=== PATIENT | female | born 1945 | race Caucasian/White ===

== ENCOUNTER 2018-05-23 14:23 | Observation (INO) | payer MEDICARE ==
--- NOTE | 2018-05-23 14:42 | ED ---
Abdominal Pain/Female - HPI Summary HPI Summary: This patient is a 72 year old F BIBA to [facility] from [facility] with a chief complaint of RUQ pain that began this morning. Pt states she felt like he has layers of different kinds of stuff going on in her and that it was creepy. The patient rates the pain 2/10 in severity. 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 Patient denies n/v and rash. Seen at [facility] last week for non STEMI and cath was normal. Pt states she has felt depressed due to the recent illness. Pt transfer from [facility] - c/o RUQ pain. Pt had "non ST elevated ID" last week - taken to [facility], heart cath done, no stents placed. Found gall bladder "thickening with stones." Pt c/o nausea as well as R shoulder pain. 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 Allergies/Adverse Reactions: Allergies Allergy/AdvReac Type Severity Reaction Status Date / Time MS Pollen Extract Allergy Sneezing Verified 05/23/18 14:34 [Pollen Extract] Home Medications: Home Medications Aspirin EC TAB* [Ecotrin EC Low Dose 81 MG*] 81 mg PO DAILY 05/23/18 [History Confirmed 05/23/18] Atorvastatin* [Lipitor*] 10 mg PO DAILY 05/23/18 [History Confirmed 05/23/18] Lisinopril [Lisinopril 2.5 MG-] 2.5 mg PO DAILY 05/23/18 [History Confirmed ] Metoprolol Succinate XL TAB* [Toprol XL TAB*] 25 mg PO DAILY 05/23/18 [History Confirmed 05/23/18] traMADol TAB* [Ultram*] 50 mg PO DAILY 05/23/18 [History Confirmed 05/23/18] PMH/Surg Hx/FS Hx/Imm Hx Endocrine/Hematology History: Denies: Hx Diabetes Cardiovascular History: Reports: Hx Myocardial Infarction - non STEMI Denies: Hx Congestive Heart Failure, Hx Hypertension, Hx Pacemaker/ICD GI History: Comment Only: Other GI Disorders - VOMITING History: Denies: Hx Renal Disease Musculoskeletal History: Denies: Hx Tendonitis Sensory History: Denies: Hx Hearing Aid Neurological History: Denies: Hx Transient Ischemic Attacks (TIA) Psychiatric History: Denies: Hx Panic Disorder - Cancer History Hx Chemotherapy: No Hx Radiation Therapy: No - Surgical History Surgery Procedure, Year, and Place: APPENDIX 2004; BUNIONS BILATERAL FEET/TOE REMOVED ;. HX OF SKIN CA 2017 Infectious Disease History: No Infectious Disease History: Denies: Traveled Outside the [place] in Last 30 Days - Family History Known Family History: Negative: Diabetes, Respiratory Disease, Seizure Disorder - Social History Alcohol Use: None Substance Use Type: Reports: None Smoking Status (MU): Former Smoker Review of Systems Positive: Other - weight loss of 4 lbs Positive: Abdominal Pain - ruq . Negative: Vomiting, Nausea Positive: Other - frozen right shoulder Neurological: Other - light headedness All Other Systems Reviewed And Are Negative: Yes Physical Exam - Summary Physical Exam Summary: Appearance: Well appearing, no pain distress Skin: warm, dry, reflects adequate perfusion, no rashes. There is a bruise in the left forearm from a recent cath Head/face: normal Eyes: EOMI, ARNOL ENT: normal Neck: supple, non-tender Respiratory: CTA, breath sounds present Cardiovascular: RRR, pulses symmetrical Abdomen: non-tender, soft Bowel Sounds: present Musculoskeletal: normal, strength/ROM intact, full ROM in RUE Neuro: normal, sensory motor intact, A&Ox3 Triage Information Reviewed: Yes Vital Signs On Initial Exam: Initial Vitals Temp Pulse Resp BP Pulse Ox 97.8 F 70 18 125/73 95 05/23/18 14:27 05/23/18 14:27 05/23/18 14:27 05/23/18 14:27 05/23/18 14:27 Vital Signs Reviewed: Yes Diagnostics - Vital Signs Vital Signs Temp Pulse Resp BP Pulse Ox 05/23/18 14:27 97.8 F 70 18 125/73 95 - Laboratory Result Diagrams: 05/23/18 16:56 05/23/18 16:56 Lab Statement: Any lab studies that have been ordered have been reviewed, and results considered in the medical decision making process. - CT CT Cspine CT Interpretation Completed By: Radiologist - Multilevel degenerative disc disease without evidence of fracture. Dr. Perez has reviewed this report. - EKG 1549 Cardiac Rate: NL EKG Rhythm: Sinus Rhythm - NSR at 61 BPM EKG Interpretation: flipped waves in the septal and lateral leads. nml axis. No ST elevations Abdominal Pain Fem Course/Dx - Course Course Of Treatment: I reviewed records from [place] which showed. Mild thicken of gall bladder wall 4.6 mm no fluid and a few small stones. Cholesterolosis. LFTs are normal, lipase pending WBCs is 12,. Patient has no pain here. She is scheduled for HIDA scan of the gallbladder. CT of the neck indicates multilevel degenerative disease. Symptoms in the arm may be from radiculopathy. She will be admitted for for further and reevaluated by surgery. - Diagnoses Provider Diagnoses: RUQ pain, Cervical radiculopathy - Provider Notifications Discussed Care Of Patient With: Perla Roberts Time Discussed With Above Provider: 14:42 Instructed by Provider To: Admit As Inpatient Discharge - Sign-Out/Discharge Documenting (check all that apply): Patient Departure - admitted - Discharge Plan Condition: Fair Disposition: ADMITTED TO [facility] - Billing Disposition and Condition Condition: FAIR Disposition: Admitted to [facility] - Attestation Statements Document Initiated by Scribe: Yes Documenting Scribe: Teo Hull Provider For Whom Abhishek is Documenting (Include Credential): Trino Perez MD Scribe Attestation: Teo Ho , scribed for Trino Perez MD on 05/23/18 at 1758. Scribe Documentation Reviewed: Yes Provider Attestation: The documentation as recorded by the Teo zuleta accurately reflects the service I personally performed and the decisions made by me, Trino Perez MD
--- OUTSIDE RECORDS SUMMARY | 2018-05-23 15:19 | XMS REPORT ---
:1945 External Reference #:[id number] Author Organization [facility] Address [address] [place] [address] Phone [phone] Care Team Providers Name Role Phone Heather Jensen Care Team Information Health Sciences Department Chair Unavailable Heather Jensen Primary Care Physician Unavailable Payers Type Date Identification Numbers Payment Provider Subscriber Medicare Primary Effective: Policy Number: Medicare [place] Sharonda Cool 2008 [id number] PayID: [id number] [address] [place] [address] Medigap Part B Effective: Policy Number: [facility] Sharonda Cool 2008 [id number] Care Options PayID: [id number] [address] [place] [address] Problems Date Description Provider Status Onset: 03/20/2013 Depressive disorder Heather Jensen M.D. Active Onset: 03/20/2013 Irritable bowel syndrome Heather Jensen M.D. Active Onset: 01/18/2018 Vitamin D deficiency Heather Jensen M.D. Active Onset: 01/18/2018 Mixed hyperlipidemia Heather Jensen M.D. Active Onset: 01/18/2018 Obstructed diaphragmatic hernia Heather Jensen M.D. Active Onset: 01/18/2018 Dyspnea Heather Jensen M.D. Active Family History Date Family Member(s) Problem(s) Comments General no fam hx lung, colon ca, DM. Mat aunt - Breast CA. No NE/Stroke Father due to COPD () - history of depression age 73. smoker. ? bi-polar Mother due to Alzheimer's () - 82. showed signs Disease of memory issues ~ age 65. Number of Children 2 First Daughter Rosette. Second Daughter Braxton Aceves, healthy. First Sister depression./ bipolar- manages herself. Second Sister mental health issues. Social History Type Date Description Comments Education Highest level of education completed is 2 years of college. Art. 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 Hobbies Antiques Cigarette Use Former Cigarette Smoker 1 10 years. Quit 1987. 1/2 Packs Daily ETOH Use Has consumed alcohol in the not since 1983. Used past to drink heavily. Smoking Patient is a former smoker Recreational Drug Use Never Used Drugs Exercise Type/Frequency garden, [employer] picking. Current Seat Belt/Car Seat Always uses a seat belt Allergies, Adverse Reactions, Alerts Date Description Reaction Status Severity Comments 06/28/2011 NKDA active 03/23/2010 Pollen active Medications Medication Date Status Form Strength Qnty SIG Indications Ordering Provider Ibuprofen 05/22/ Active Tablets 600mg 90tab 1 tab by Heather Alejo s mouth Mikey, every 8 M.D. hours as needed pain. take with food Aspirin Ec 05/22/ Active Tablets DR 81mg 100ta 1 by mouth I25.10 Heather Alejo bs every day Nicci Jensen Nitrostat 05/22/ Active Tablets Sub 0.4mg 30tab 1 tab sub I25.10 Heather Conte 2017 s lingual Mikey, every 5 M.D. minutes x 3. Tramadol HCL 05/22/ Active Tablets 50mg 20tab take 1 M25.511 Heather Conte 2017 s pill by Mikey, mouth 4 M.D. times daily Ventolin HFA 04/17/ Active Aerosol 108(90Bas 18uni 2 puffs 4 Heather Conte 2017 e) ts times Mikey, mcg/Act daily. M.D. Proair HFA 01/18/ Active Aerosol 108(90Bas 8.5un inhale two R06.02 Heather Conte 2017 e) its puffs by Mikey, mcg/Act mouth M.D. every 4 -6hours as needed Meclizine HCL 01/18/ Active Tablets 12.5mg 50tab 1-2 by H81.13 Heather Tate s mouth four Mikey, times a M.D. day as needed dizziness Iron 00/ Active Tablets 1 tab po Unknown 0000 qd Metoprolol / Active Tablets ER 25mg 1 by mouth Unknown Succinate ER 0000 24HR every day Lisinopril / Active Tablets 2.5mg 1 by mouth Unknown 0000 every day Atorvastatin 00/ Active Tablets 10mg 1 by mouth Unknown Calcium 0000 every day Metoprolol 02/01/ Hx Tablets 25mg 45tab take 1/2 F43.22 Heather Conte Tartrate 2018 - s tablet by Mikey, 05/22/ mouth once M.D. 2018 a day Levofloxacin 01/26/ Hx Tablets 750mg 1 tab a Unknown 2017 - x 7 02/05/ days 2017 Note Physical 01/26/ Hx Evaluate Heather Conte Therapy 2016 - and Treat. Mikey, 03/22/ Vertigo M.D. 2016 fax to : [phone] Probiotic 01/18/ Hx Capsules 90cap 1 by mouth Heather Conte 2017 - s every day Mikey, 01/17/ M.D. 2017 No Active 05/09/ Hx Unknown Medications 2015 - 2016 Physical 03/07/ Hx evaluate Heather Conte Therapy 2015 - and treat Mikey, 05/08/ dizzyness M.D. 2016 maili to patient's home No Active 02/06/ Hx Unknown Medications 2015 - 2015 Diflucan 01/23/ Hx Tablets 150mg 2tabs one tablet J02.9 Cordelia 2016 - today and ANGIE Davenport 02/06/ repeat in 2016 a week No Active 01/26/ Hx Unknown Medications 2014 - 2015 Vitamin D3 05/03/ Hx Capsules [id number] 12cap 1 po Heather Conte 2014 - s weekly x Mikey, . M.D. 2014 Probiotic 03/26/ Hx Capsules 1 po qd Heather Conte 2013 - Mikey, 01/26/ M.D. 2015 Zofran 03/20/ Hx Tablets 4mg 60tab 1-2 po tid Heather Conte 2014 - s for Mikey, 03/26/ vomiting M.D. 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 No Active 01/19/ Hx Unknown Medications 2013 - 2013 Zoloft 10/09/ Hx Concentrate 20mg/ml 60ml 1 ml po Heather Conte 2013 - qd x 2 Mikey, 01/19/ 09/11 MClifton 2013 ml po qd x 2 weeks 1/4 ml po qd x 2 weeks 1/4 ml po qod x 2 weeks 1/4 ml po q3 days x2 weeks Zoloft 11/26/ Hx Tablets 25mg 90tab 1 po qd 311 Heather LJude 2012 - s Mikey, 01/19/ Nicci 2013 Celexa 01/03/ Hx Tablets 10mg 90tab 1 po qd 300.09 Rosalia 2011 - s Jasmin 11/26/ 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 Celexa 05/24/2011 - Hx Tablets 10mg 30tabs 1 po qd 311 Elizabeth Villegas 01/04/2012 Nicci Campbell Zoloft 03/23/2011 - Hx Tablets 25mg 30tabs 1 po qd 311 Ina 05/24/2011 Sachin Frank Wellbutrin XL 03/06/2011 - Hx Tablets ER 150mg 30tabs 1 po qd Kimberly 03/06/2011 24HR casey Madden M.D. Bupropion HCL 03/06/2011 - Hx Tablets 75mg 60tabs 1 PO bid Kimberly 03/23/2011 casey Madden M.D. Aspirin 06/14/2009 - Hx Chewtabs 81mg 1 po qd Family 03/06/2011 [facility] Fish Oil 06/14/2009 - Hx Capsules 1000mg 60caps 1 po bid Kimberly 01/04/2012 casey Madden M.D. Calcium-Vitamin 06/14/2009 - Hx Tablets 500-125 60tabs 1 with Kimberly D 03/06/2011 breakfast and casey Madden, 1 with dinner M.DJude Meclizine HCL 05/14/2009 - Hx Tablets 12.5mg 20tabs take 1-2 bid 386.11 Ina 03/06/2011 prn for Monika, dizziness Afnp-C Physical 05/06/2009 - Hx evaluate and Ina Therapy 03/06/2011 treat Monika, cervicalgia Afnp-C and vertigo Xanax 03/03/2009 - Hx Tablets 0.5mg 3tabs one to two Porter A. 03/09/2009 tabs po 1-2 Nicci Tapia hours prior to procedure Meclizine HCL 02/02/2009 - Hx Tablets 12.5mg 30tabs one to two 386.10 Porter A. 03/09/2009 tab po every Nicci Tapia 12 hours Zyrtec Allergy 02/02/2009 - Hx Tablets 10mg 30tabs one tab po 477.9 Porter A. 03/09/2009 daily Nicci Tapia Ativan 01/28/2007 - Hx Tablets 0.5mg 90tabs 1-2 q8 hours Kimberly 02/02/2009 prn anxiety casey Madden M.D. Paxil 05/18/2005 - Hx Tablets 10mg 30tabs 1 po qd Ina 07/02/2006 Monika, Afnp-C Prednisone 04/17/2001 - Hx Tabs 20mg 38tabs 2/D X 3DWesley 04/27/2001 Then 1/D X 3D Nicci Andrade Prozac 04/17/2001 - Hx 20mg 30units 1 PO qd Wesley Lance 07/19/2001 Nicci Andrade Prempro 05/24/2000 - Hx 0.625/2 30units 1 PO qd Wesley Lance 05/18/2005 .5 Nicci Andrade Metrogel 02/23/2000 - Hx 15gm Apply bid Wesley S. 05/18/2005 Nicci Andrade Zoloft 08/12/1999 - Hx 50 30units 1 Q.D Wesley S. 05/24/2000 Nicci Andrade Flexeril 08/24/1998 - Hx 10mg 30units 1 PO tid prn Wesley S. 06/14/1999 Neck Pain Nicci Andrade Diprolene AF 08/17/1998 - Hx 15gm Apply bid To Wesley S. 06/14/1999 Rash Nicci Andrade Relafen 06/17/1998 - Hx 500mg 30units 2 PO qd With Wesley SJude 08/24/1998 Moira Meal Nicci Andrade Bactrim DS 06/10/1998 - Hx 10units 1 PO bid Ina 06/15/1998 Sachin Frank Vermox 06/07/1998 - Hx 100mg 1units 1 Tab Stat Ina 06/08/1998 Sachin Frank Naproxen 05/19/1998 - Hx 375mg 30units 1 PO tid prn Wesley SJude 06/07/1998 Tab Nicci Andrade Metrogel 05/19/1998 - Hx Gel 70gm as Dir Wesley Welsh. Vaginal 05/26/1998 Nicci Andrade Vitamin B 6 - Hx Capsules 100mg Unknown 03/20/2013 Cipro - Hx Tablets 500mg 1 po bid Unknown 03/20/2014 Metronidazole - Hx Tablets 500mg 1 po tid Unknown 03/26/2014 Proair HFA - Hx Aerosol 108(90B 2 puffs every Unknown 02/01/2018 ase) 6 hours as mcg/Act needed Immunizations CPT Code Status Date Vaccine Lot # [id number] Given 01/18/2018 Pneumococcal Conjugate Vacc-13 [id number] Vital Signs Date Vital Result Comment 05/22/2018 BP Systolic 116 mmHg BP Diastolic 62 mmHg Heart Rate 60 /min Body Temperature 98.1 F Respiratory Rate 16 /min Height 61 inches 5'1" Weight 129.12 lb BMI (Body Mass Index) 24.4 kg/m2 02/01/2018 BP Systolic 100 mmHg BP Diastolic 60 mmHg Heart Rate 80 /min Body Temperature 98.6 F Respiratory Rate 16 /min Height 61 inches 5'1" Weight 133.00 lb BMI (Body Mass Index) 25.1 kg/m2 01/18/2018 BP Systolic 98 mmHg BP Diastolic 62 mmHg Heart Rate 76 /min Body Temperature 98.6 F Respiratory Rate 16 /min Height 61 inches 5'1" 04/12/2017 BP Systolic 102 mmHg BP Diastolic 62 mmHg Heart Rate 84 /min Body Temperature 97.7 F Height 61 inches 5'1" Weight 133.38 lb BMI (Body Mass Index) 25.2 kg/m2 03/22/2017 BP Systolic 120 mmHg BP Diastolic 78 mmHg Heart Rate 76 /min Body Temperature 98.2 F Respiratory Rate 18 /min Height 61 inches 5'1" Weight 133.00 lb BMI (Body Mass Index) 25.1 kg/m2 01/18/2017 BP Systolic 100 mmHg BP Diastolic 70 mmHg Heart Rate 68 /min Body Temperature 98.1 F Respiratory Rate 18 /min Height 61 inches 5'1" Weight 133.00 lb BMI (Body Mass Index) 25.1 kg/m2 05/09/2016 BP Systolic 114 mmHg BP Diastolic 70 mmHg Heart Rate 102 /min Body Temperature 98.1 F Height 61 inches 5'1" Weight 133.00 lb BMI (Body Mass Index) 25.1 kg/m2 01/24/2016 BP Systolic 110 mmHg BP Diastolic 60 mmHg Heart Rate 72 /min Body Temperature 98.4 F Respiratory Rate 16 /min Height 61 inches 5'1" Weight 132.00 lb BMI (Body Mass Index) 24.9 kg/m2 01/11/2016 BP Systolic 102 mmHg BP Diastolic 70 mmHg Heart Rate 82 /min Body Temperature 97.8 F Respiratory Rate 15 /min Height 61 inches 5'1" Weight 132.00 lb BMI (Body Mass Index) 24.9 kg/m2 04/15/2015 BP Systolic 120 mmHg BP Diastolic 70 mmHg Heart Rate 76 /min Body Temperature 98.0 F Respiratory Rate 16 /min Height 61 inches 5'1" Weight 133.00 lb BMI (Body Mass Index) 25.1 kg/m2 01/26/2015 BP Systolic 100 mmHg BP Diastolic 70 mmHg Heart Rate 68 /min Body Temperature 98.1 F Height 61 inches 5'1" Weight 134.00 lb BMI (Body Mass Index) 25.3 kg/m2 03/26/2014 BP Systolic 134 mmHg BP Diastolic 70 mmHg Heart Rate 58 /min Body Temperature 97.4 F Respiratory Rate 16 /min Height 61 inches 5'1" Weight 127.00 lb BMI (Body Mass Index) 24.0 kg/m2 03/16/2014 BP Systolic 140 mmHg BP Diastolic 72 mmHg Heart Rate 72 /min Body Temperature 98.9 F Respiratory Rate 16 /min Height 61.5 inches 5'1.50" Weight 128.25 lb BMI (Body Mass Index) 23.8 kg/m2 02/27/2014 BP Systolic 102 mmHg BP Diastolic 62 mmHg Heart Rate 88 /min Body Temperature 98.6 F Height 61.5 inches 5'1.50" Weight 128.00 lb BMI (Body Mass Index) 23.8 kg/m2 01/19/2014 BP Systolic 120 mmHg BP Diastolic 74 mmHg Heart Rate 76 /min Body Temperature 98.4 F Respiratory Rate 16 /min Height 61.5 inches 5'1.50" Weight 136.00 lb BMI (Body Mass Index) 25.3 kg/m2 05/23/2013 BP Systolic 122 mmHg BP Diastolic 70 mmHg Heart Rate 72 /min Body Temperature 98.6 F Respiratory Rate 16 /min Height 61.5 inches 5'1.50" Weight 133.12 lb BMI (Body Mass Index) 24.7 kg/m2 03/20/2013 BP Systolic 122 mmHg BP Diastolic 70 mmHg Heart Rate 72 /min Body Temperature 97.4 F Respiratory Rate 18 /min Height 61.5 inches 5'1.50" Weight 133.12 lb BMI (Body Mass Index) 24.7 kg/m2 01/04/2012 BP Systolic 90 mmHg BP Diastolic 60 mmHg Heart Rate 68 /min Body Temperature 98.3 F Height 61.5 inches 5'1.50" Weight 135.00 lb BMI (Body Mass Index) 25.1 kg/m2 06/28/2011 BP Systolic 114 mmHg BP Diastolic 72 mmHg Heart Rate 78 /min Body Temperature 98.5 F Height 61.5 inches 5'1.50" Weight 131.00 lb BMI (Body Mass Index) 24.3 kg/m2 05/24/2011 BP Systolic 110 mmHg BP Diastolic 70 mmHg Heart Rate 72 /min Respiratory Rate 14 /min Height 61.5 inches 5'1.50" Weight 131.00 lb BMI (Body Mass Index) 24.3 kg/m2 04/13/2011 BP Systolic 102 mmHg BP Diastolic 64 mmHg Heart Rate 64 /min Body Temperature 97.9 F Height 61.5 inches 5'1.50" Weight 131.00 lb BMI (Body Mass Index) 24.3 kg/m2 04/06/2011 BP Systolic 110 mmHg BP Diastolic 78 mmHg Heart Rate 78 /min Height 61.5 inches 5'1.50" Weight 132.00 lb BMI (Body Mass Index) 24.5 kg/m2 03/23/2011 BP Systolic 100 mmHg BP Diastolic 80 mmHg Heart Rate 60 /min Body Temperature 98.3 F Height 61.5 inches 5'1.50" Weight 134.00 lb BMI (Body Mass Index) 24.9 kg/m2 03/06/2011 BP Systolic 118 mmHg BP Diastolic 72 mmHg Heart Rate 78 /min Body Temperature 97.3 F Height 61.5 inches 5'1.50" Weight 135.00 lb BMI (Body Mass Index) 25.1 kg/m2 03/23/2010 BP Systolic 114 mmHg BP Diastolic 64 mmHg Heart Rate 72 /min Body Temperature 98.3 F Height 61.5 inches 5'1.50" Weight 134.00 lb BMI (Body Mass Index) 24.9 kg/m2 06/14/2009 BP Systolic 126 mmHg BP Diastolic 88 mmHg Heart Rate 72 /min Body Temperature 98.4 F Height 61.5 inches 5'1.50" Weight 127.00 lb BMI (Body Mass Index) 23.6 kg/m2 05/14/2009 BP Systolic 120 mmHg BP Diastolic 74 mmHg Heart Rate 72 /min Height 61.5 inches 5'1.50" Weight 127.00 lb BMI (Body Mass Index) 23.6 kg/m2 05/06/2009 BP Systolic 118 mmHg BP Diastolic 78 mmHg Heart Rate 68 /min Body Temperature 98.1 F Weight 127.00 lb 03/09/2009 BP Systolic 110 mmHg BP Diastolic 76 mmHg Heart Rate 56 /min Body Temperature 96.7 F Weight 130.00 lb 03/04/2009 BP Systolic 128 mmHg BP Diastolic 72 mmHg Heart Rate 68 /min Weight 130.00 lb 02/02/2009 BP Systolic 128 mmHg BP Diastolic 80 mmHg Heart Rate 72 /min Body Temperature 98.0 F Weight 130.00 lb 01/28/2007 BP Systolic 120 mmHg BP Diastolic 70 mmHg Heart Rate 68 /min Height 61.5 inches 5'1.50"Measured Weight 131.00 lb BMI (Body Mass Index) 24.3 kg/m2 07/02/2006 BP Systolic 116 mmHg BP Diastolic 70 mmHg Heart Rate 66 /min Height 61.5 inches 5'1.50"Measured Weight 134.00 lb BMI (Body Mass Index) 24.9 kg/m2 05/18/2005 BP Systolic 118 mmHg BP Diastolic 78 mmHg Heart Rate 62 /min Respiratory Rate 11 /min Height 62.5 inches 5'2.50" Weight 124.00 lb BMI (Body Mass Index) 22.3 kg/m2 02/17/2004 BP Systolic 100 mmHg BP Diastolic 68 mmHg Heart Rate 88 /min Body Temperature 99.5 F Height 62.5 inches 5'2.50" Weight 122.00 lb BMI (Body Mass Index) 22.0 kg/m2 06/05/2001 BP Systolic 100 mmHg BP Diastolic 60 mmHg Heart Rate 64 /min Height 62.5 inches 5'2.50" Weight 124.00 lb BMI (Body Mass Index) 22.7 kg/m2 04/17/2001 BP Systolic 90 mmHg BP Diastolic 60 mmHg Heart Rate 80 /min Height 62 inches 5'2" Weight 124.00 lb BMI (Body Mass Index) 22.7 kg/m2 06/15/2000 Height 62 inches 5'2" 05/24/2000 BP Systolic 110 mmHg BP Diastolic 70 mmHg Heart Rate 62 /min Body Temperature 97.4 F Height 62 inches 5'2" Weight 128.00 lb BMI (Body Mass Index) 23.4 kg/m2 02/23/2000 BP Systolic 94 mmHg LA SM Cuff BP Diastolic 64 mmHg LA SM Cuff Heart Rate 68 /min Height 62.50 inches 5'2.50" Weight 127.00 lb BMI (Body Mass Index) 23.2 kg/m2 06/14/1999 BP Systolic 126 mmHg BP Diastolic 68 mmHg Height 62.50 inches 5'2.50" Weight 132.00 lb 08/24/1998 BP Systolic 120 mmHg BP Diastolic 70 mmHg Body Temperature 97.3 F 08/17/1998 Body Temperature 98.6 F Weight 128.00 lb 06/07/1998 BP Systolic 130 mmHg BP Diastolic 88 mmHg Weight 127.00 lb 05/19/1998 Body Temperature 97.9 F 05/14/1998 BP Systolic 110 mmHg BP Diastolic 74 mmHg Weight 130.00 lb Results Test Date Test Result H/L Range Note Laboratory test finding 02/13/2017 TSH 5.09 mIU/L 0.50-6.00 Free T4 1.15 ng/dL 0.75-1.54 Free T3 2.42 pg/mL 2.00-4.90 Vitamin B-12 836 pg/mL 230-1050 Folate Level 15.68 ng/mL 3.00-16.00 Vitamin D25 31 30-100 Lipid Profile 02/13/2017 Cholesterol 222 mg/dL High 120-200 Triglycerides 164 mg/dL 30-200 HDL Cholesterol 50 mg/dL 30-85 LDL (Calculated) 139 CALC High 0-129 VLDL Cholesterol 33 mg/dL 0-50 HDL Risk Factor 4.4 CALC 0.0-4.4 Laboratory test finding 02/13/2017 Ferritin 7 ng/mL Low 15-200 1 Complete Blood Count 02/13/2017 WBC 5.5 x10^3/UL 3.6-9.6 RBC 4.55 x10^6/UL 3.90-5.70 HGB 13.4 g/dL 12.1-17.2 HCT 39 % 36-50 MCV 87.0 fL 82.2-97.4 MCH 29.4 pg 27.6-33.3 MCHC 33.9 g/dL 33.0-35.5 RDW 14.9 % High 11.6-13.7 PLT 328 x10^3/UL 150-400 MPV 6.9 fL Low 7.4-10.4 Gran # 3.4 x10^3/UL 1.5-7.2 Lymph# 1.7 x10^3/UL 0.7-4.9 Obion# 0.4 x10^3/UL 0.1-0.9 Gran % 59.5 % 42.2-75.2 Lymph % 32.0 % 20.5-51.1 Obion% 8.5 % 1.7-9.3 Comprehensive Metabolic Prof 02/13/2017 Sodium 137 mEq/L 134-149 Potassium 4.0 mEq/L 3.6-5.5 Chloride 100 mEq/L 94-112 Carbon Dioxide 26 mEq/L 21-32 Glucose 100 mg/dL 70-105 BUN 19 mg/dL 6-26 Creatinine 0.8 mg/dL 0.6-1.4 BUN/Creat Ratio 23.8 CALC 8.0-36.0 Calcium 9.1 mg/dL 8.6-10.2 Total Protein 6.9 g/dL 6.4-8.3 Albumin 4.4 g/dL 3.8-5.5 Globulin 2.5 g/dL 2.0-4.8 A/G Ratio 1.8 CALC 0.6-2.3 Alk. Phosphatase 61 U/L 30-110 Alt (SGPT) 7 U/L 7-35 Ast (Sgot) 15 U/L 5-34 Total Bilirubin 1.4 mg/dL High 0.2-1.3 2 GFR Non- >60 ml/min/1.73m^ >=60 GFR >60 ml/min/1.73m^ >=60 Urinalysis Profile 03/21/2016 Urine Color Straw Urine Appearance Clear Urine Specific [place] 1.004 Low 1.010-1.030 Urine pH 5.0 5-9 Urine Urobilinogen Negative Negative Urine Ketones Negative Negative Urine Protein Negative Negative Urine Leukocytes Negative Negative Urine Blood Negative Negative Urine Nitrite Negative Negative Urine Bilirubin Negative Negative Urine Glucose Negative Negative CBC Auto Diff 03/21/2016 White Blood Count 6.5 10^3/uL 3.5-10.8 Red Blood Count 4.51 10^6/uL 4.0-5.4 Hemoglobin 13.0 g/dL 12.0-16.0 Hematocrit 39 % 35-47 Mean Corpuscular Volume 87 fL 80-97 Mean Corpuscular Hemoglobin 29 pg 27-31 Mean Corpuscular HGB Conc 33 g/dL 31-36 Red Cell Distribution Width 14 % 10.5-15 Platelet Count 305 10^3/uL 150-450 Mean Platelet Volume 8 um3 7.4-10.4 Abs Neutrophils 4.5 10^3/uL 1.5-7.7 Abs Lymphocytes 1.3 10^3/uL 1.0-4.8 Abs Monocytes 0.4 10^3/uL 0-0.8 Abs Eosinophils 0.2 10^3/uL 0-0.6 Abs Basophils 0.1 10^3/uL 0-0.2 Abs Nucleated RBC 0.01 10^3/uL Granulocyte % 69.7 % 38-83 Lymphocyte % 20.6 % Low 25-47 Monocyte % 5.9 % 1-9 Eosinophil % 2.4 % 0-6 Basophil % 1.4 % 0-2 Nucleated Red Blood Cells % 0.1 Comp Metabolic Panel 03/21/2016 Sodium 137 mmol/L 133-145 Potassium 3.7 mmol/L 3.5-5.0 Chloride 104 mmol/L 101-111 Co2 Carbon Dioxide 25 mmol/L 22-32 Anion Gap 8 mmol/L 2-11 Glucose 101 mg/dL High 70-100 Blood Urea Nitrogen 16 mg/dL 6-24 Creatinine 0.80 mg/dL 0.51-0.95 BUN/Creatinine Ratio 20.0 8-20 Calcium 9.3 mg/dL 8.6-10.3 Total Protein 7.2 g/dL 6.4-8.9 Albumin 4.2 g/dL 3.2-5.2 Globulin 3.0 g/dL 2-4 Albumin/Globulin Ratio 1.4 1-3 Total Bilirubin 1.10 mg/dL High 0.2-1.0 Alkaline Phosphatase 61 U/L 34-104 Alt 7 U/L 7-52 Ast 18 U/L 13-39 Egfr Non- 70.5 >60 Egfr 90.7 >60 3 Laboratory test finding 03/21/2016 Magnesium 2.3 mg/dL 1.9-2.7 Troponin I 0.00 ng/mL <0.03 4 TSH (Thyroid Stim Horm) 2.44 ?IU/mL 0.34-5.60 Ua - Non Micro (a) 01/24/2016 Appearance yellow Color clear Glucose, Urine ([facility]/CMC/CTX) neg Bilirubin neg Ketones neg SP Grav 1.020 Blood neg PH 5.5 Protein neg Urobil 0.2 Nitrite neg Leukocytes ([place] neg Comprehensive Metabolic Prof 01/11/2016 Sodium 138 mEq/L 134-149 Potassium 4.4 mEq/L 3.6-5.5 Chloride 100 mEq/L 94-112 Carbon Dioxide 29 mEq/L 21-32 Glucose 94 mg/dL 70-105 BUN 13 mg/dL 6-26 Creatinine 0.8 mg/dL 0.6-1.4 BUN/Creat Ratio 16.3 CALC 8.0-36.0 Calcium 9.8 mg/dL 8.6-10.2 Total Protein 6.9 g/dL 6.4-8.3 Albumin 4.3 g/dL 3.8-5.5 Globulin 2.6 g/dL 2.0-4.8 A/G Ratio 1.7 CALC 0.6-2.3 Alk. Phosphatase 68 U/L 30-110 Alt (SGPT) 9 U/L 7-35 Ast (Sgot) 22 U/L 5-34 Total Bilirubin 1.1 mg/dL 0.2-1.3 GFR Non- >60 ml/min/1.73m^ >=60 GFR >60 ml/min/1.73m^ >=60 Laboratory test finding 01/11/2016 TSH 2.48 mIU/L 0.50-6.00 Complete Blood Count 01/11/2016 WBC 3.4 x10^3/UL Low 3.6-9.6 5 RBC 4.57 x10^6/UL 3.90-5.70 HGB 13.8 g/dL 12.1-17.2 HCT 41 % 36-50 MCV 89.0 fL 82.2-97.4 MCH 30.3 pg 27.6-33.3 MCHC 33.9 g/dL 33.0-35.5 RDW 14.2 % High 11.6-13.7 PLT 237 x10^3/UL 150-400 MPV 6.7 fL Low 7.4-10.4 Gran # 2.0 x10^3/UL 1.5-7.2 Lymph# 1.2 x10^3/UL 0.7-4.9 Obion# 0.2 x10^3/UL 0.1-0.9 Gran % 56.4 % 42.2-75.2 Lymph % 36.4 % 20.5-51.1 Obion% 7.2 % 1.7-9.3 Laboratory test finding 04/15/2015 Urine Culture ([facility]/CMC) NEGATIVE Ua - Micro ([facility]ma) 04/15/2015 Appearance CLEAR Color YELLOW Glucose, Urine ([facility]ma/CMC/CTX) NEG Bilirubin NEG Ketones NEG SP Grav 1.015 Blood TRACE-INTACT PH 5.0 Protein NEG Urobil 0.2 Nitrite NEG Leukocytes ([facility]ma/[facility]) NEG Hyaline - /Lpf Granular - /Lpf WBC (Fma,[facility]) - RBC 0-1 Mucus - /Lpf Epith RARE /Lpf Bacteria - /Hpf Amorphous - /Lpf Crystals, Fluid ([facility]ma/CMC/CTX) - Z#Comments - Laboratory test finding 01/26/2015 TSH 1.74 mIU/L 0.50-6.00 Free T4 1.04 ng/dL 0.75-1.54 Complete Blood Count 01/26/2015 WBC 5.5 x10^3/UL 3.6-9.6 RBC 4.51 x10^6/UL 3.90-5.70 HGB 13.5 g/dL 12.1-17.2 HCT 40 % 36-50 MCV 89.0 fL 82.2-97.4 MCH 30.0 pg 27.6-33.3 MCHC 33.8 g/dL 33.0-35.5 RDW 13.9 % High 11.6-13.7 PLT 298 x10^3/UL 150-400 MPV 6.6 fL Low 7.4-10.4 Gran # 3.5 x10^3/UL 1.5-7.2 Lymph# 1.6 x10^3/UL 0.7-4.9 Obion# 0.4 x10^3/UL 0.1-0.9 Gran % 60.7 % 42.2-75.2 Lymph % 30.4 % 20.5-51.1 Obion% 8.9 % 1.7-9.3 Comprehensive Metabolic Prof 01/26/2015 Sodium 137 mEq/L 134-149 Potassium 3.6 mEq/L 3.6-5.5 Chloride 100 mEq/L 94-112 Carbon Dioxide 24 mEq/L 21-32 Glucose 92 mg/dL 70-105 BUN 15 mg/dL 6-26 Creatinine 0.8 mg/dL 0.6-1.4 BUN/Creat Ratio 18.8 CALC 8.0-36.0 Calcium 9.8 mg/dL 8.6-10.2 Total Protein 7.6 g/dL 6.4-8.3 Albumin 4.2 g/dL 3.8-5.5 Globulin 3.4 g/dL 2.0-4.8 A/G Ratio 1.2 CALC 0.6-2.3 Alk. Phosphatase 60 U/L 30-110 Alt (SGPT) 11 U/L 7-35 Ast (Sgot) 20 U/L 5-34 Total Bilirubin 1.2 mg/dL 0.2-1.3 Laboratory test finding 01/26/2015 Vitamin D25 46 30-100 Ua - Non Micro ([facility]) 03/26/2014 Appearance CLEAR Color YELLOW Glucose NEG Bilirubin NEG Ketones NEG SP Grav 1.020 Blood NEG PH 6.5 Protein NEG Urobil 0.2 Nitrite NEG Leukocytes ([facility] NEG Complete Blood Count 03/26/2014 WBC 5.6 x10^3/UL 3.6-9.6 RBC 4.37 x10^6/UL 3.90-5.70 HGB 12.5 g/dL 12.1-17.2 HCT 37 % 36-50 MCV 85.0 fL 82.2-97.4 MCH 28.7 pg 27.6-33.3 MCHC 33.8 g/dL 33.0-35.5 RDW 13.2 % 11.6-13.7 PLT 390 x10^3/UL 150-400 MPV 7.3 fL Low 7.4-10.4 Gran # 3.7 x10^3/UL 1.5-7.2 Lymph# 1.4 x10^3/UL 0.7-4.9 Obion# 0.5 x10^3/UL 0.1-0.9 Gran % 64.2 % 42.2-75.2 Lymph % 26.2 % 20.5-51.1 [place]% 9.6 % High 1.7-9.3 Basic Metabolic Profile 03/26/2014 Sodium 140 mEq/L 134-149 Potassium 4.3 mEq/L 3.6-5.5 Chloride 106 mEq/L 94-112 Carbon Dioxide 24 mEq/L 21-32 Glucose 96 mg/dL 70-105 BUN 11 mg/dL 6-26 Creatinine 0.9 mg/dL 0.6-1.4 BUN/Creat Ratio 12.2 CALC 8.0-36.0 Calcium 9.6 mg/dL 8.6-10.2 Laboratory test finding 03/26/2014 Vitamin D25 5 Low 30-100 6 TSH 2.10 mIU/L 0.50-6.00 Laboratory test finding 03/26/2014 Hemoglobin A1c [place] [place] 5.3 % 4.1- 5.7 Lyme Western Blot Ser 03/26/2014 IgG P93 Ab. Absent IgG P66 Ab. Absent IgG P58 Ab. Absent IgG P45 Ab. Absent IgG P41 Ab. Absent IgG P39 Ab. Absent IgG P30 Ab. Absent IgG P28 Ab. Absent IgG P23 Ab. Absent IgG P18 Ab. Absent Lyme IgG WB Interp. Negative 7 IgM P41 Ab. Absent IgM P39 Ab. Absent IgM P23 Ab. Absent Lyme IgM WB Interp. Negative 8 Stool Culture 03/14/2014 Stool Culture (SEE NOTE) 9 Laboratory test finding 03/14/2014 Fecal Lactoferrin (Stool WBC) (SEE NOTE) 10 C. difficile Amplified Dna (SEE NOTE) 11 O P: Giardia/Cryptospor Screen (SEE NOTE) 12 Laboratory test finding 03/14/2014 Lactic Acid 0.8 mmol/L 0.5-2.2 Urinalysis Profile 03/13/2014 Urine Color Yellow Urine Appearance Clear Urine Specific [place] 1.011 1.010-1.030 Urine pH 5.0 5-9 Urine Urobilinogen Negative Negative Urine Ketones Negative Negative Urine Protein Negative Negative Urine Leukocytes Negative Negative Urine Blood Negative Negative * * Negative 13 Urine Nitrite Negative Negative Urine Bilirubin Negative Negative Urine Glucose Negative Negative CBC Auto Diff 03/13/2014 White Blood Count 17.1 10^3/uL High 4.8-10.8 Red Blood Count 4.50 10^6/uL 4.0-5.4 Hemoglobin 12.6 g/dL 12.0-16.0 Hematocrit 37 % 35-47 Mean Corpuscular Volume 82 fL 80-97 Mean Corpuscular Hemoglobin 28 pg 27-31 Mean Corpuscular HGB Conc 34 g/dL 31-36 Red Cell Distribution Width 15 % 10.5-15 Platelet Count 385 10^3/uL 150-450 Mean Platelet Volume 7 um3 Low 7.4-10.4 Abs Neutrophils 15.5 10^3/uL High 1.5-7.7 Abs Lymphocytes 1.0 10^3/uL 1.0-4.8 Abs Monocytes 0.5 10^3/uL 0-0.8 Abs Eosinophils 0.1 10^3/uL 0-0.6 Abs Basophils 0.1 10^3/uL 0-0.2 Abs Nucleated RBC 0.02 10^3/uL Granulocyte % 90.5 % High 38-83 Lymphocyte % 5.8 % Low 25-47 Monocyte % 2.9 % 1-9 Eosinophil % 0.4 % 0-6 Basophil % 0.4 % 0-2 Nucleated Red Blood Cells % 0.1 Inr/Protime 03/13/2014 Inr 0.88 0.85-1.06 Laboratory test finding 03/13/2014 Activated Partial 26.5 seconds 24.0- 36.1 Thrombo Time Comp Metabolic Panel 03/13/2014 Sodium 135 mmol/L 133-145 Potassium 4.1 mmol/L 3.7-5.6 Chloride 102 mmol/L 101-111 Co2 Carbon Dioxide 25 mmol/L 22-32 Anion Gap 8 mmol/L 2-11 Glucose 120 mg/dL High 70-100 Blood Urea Nitrogen 14 mg/dL 6-24 Creatinine 0.83 mg/dL 0.51-0.95 BUN/Creatinine Ratio 16.9 8-20 Calcium 10.1 mg/dL 8.6-10.3 Total Protein 7.4 g/dL 6.4-8.9 Albumin 4.5 g/dL 3.2-5.2 Globulin 2.9 g/dL 2-4 Albumin/Globulin Ratio 1.6 1-3 Total Bilirubin 0.90 mg/dL 0.2-1.0 Alkaline Phosphatase 60 U/L 34-104 Alt 8 U/L 7-52 Ast 19 U/L 13-39 Egfr Non- 68.0 >60 Egfr 87.4 >60 14 Laboratory test finding 03/13/2014 Amylase 51 U/L 29-103 Lipase 27 U/L 11.0-82.0 Creatine Kinase 47 U/L 10-223 Troponin I 0.00 ng/mL <0.03 15 C Reactive Protein 1.07 mg/L < 5.00 16 Lactic Acid 2.6 mmol/L High 0.5-2.2 17 Laboratory test finding 02/28/2014 Stool Culture (SEE NOTE) 18 O P: Giardia/Cryptospor Screen (SEE NOTE) 19 Ova Parasite Concen Full (SEE NOTE) 20 Laboratory test finding 01/19/2014 Glucose Whole Blood 95 70-105 Laboratory test finding 03/20/2013 Cytology RUN DATE: <SEE NOTE> CBC Electronic (Fma) 03/20/2013 WBC 6.3 3.6-9.6 RBC 4.48 3.90-5.70 Hemoglobin (Fma/CMC/CTX) 13.0 g/dL 12.1 - 17.2 Hematocrit (Fma/CMC/CTX) 39.3 % 36.1 - 50.3 Platelets 302 10^3/ul 150-400 Lymph% 25.0 20.5-51.1 Mixed% 5.5 Neutrophils % 69.5 Mean Corpuscular Vol 88 82.2-97.4 Mean Corpuscular Hemoglobin 29.0 27.6-33.3 Mean Corpuscular Hemo Concen 33.1 32.0-36.0 RDW 12.9 11.6-13.7 Mean Platelet Volume 6.7 6.5-11.0 Ua - Micro (Fma) 03/20/2013 Appearance YELLOW Color CLEAR Glucose NEG Bilirubin NEG Ketones NEG SP Grav 1.010 Blood TRACE-INTACT PH 5.0 Protein NEG Urobil 0.2 Nitrite NEG Leukocytes (Fma/CMC/Centrex) TRACE Hyaline - /Lpf Granular - /Lpf WBC (Fma,Centrex) 1-3 RBC 0-2 Mucus - /Lpf Epith RARE /Lpf Bacteria TRACE /Hpf Amorphous - /Lpf Crystals, Fluid (Fma/CMC/CTX) - Z#Comments - Lipid Profile 03/20/2013 Cholesterol 234 mg/dL High 120-200 HDL 52 mg/dL 30-85 Triglycerides 136 mg/dL 30-200 HDL Risk Factor 4.5 CALC High 0.0-4.4 LDL (Calculated) 155 CALC High 0-129 VLDL (Calculated) 27 mg/dL 0-50 Comprehensive Metabolic Prof 03/20/2013 Albumin 4.7 g/dL 3.8-5.5 Alk. Phos. 65 U/L 30-110 Alt (SGPT) 6 U/L Low 7-35 22 Ast (Sgot) 18 U/L 5-34 BUN 18 mg/dL 6-26 Calcium 9.6 mg/dL 8.6-10.2 Chloride 100 mEq/L 94-112 Creatinine 0.9 mg/dL 0.6-1.4 Carbon Dioxide 27 mEq/L 21-32 Glucose 93 mg/dL 70-105 Sodium 142 mEq/L 134-149 Total Bilirubin 1.1 mg/dL 0.2-1.3 Total Protein 6.9 g/dL 6.3-8.1 Potassium 4.0 mEq/L 3.6-5.5 Globulin 2.2 g/dL 2.0-4.8 A/G Ratio 2.2 Calc 0.6-2.3 BUN/Creat Ratio 20.2 Calc 8.0-36.0 Laboratory test finding 03/20/2013 TSH 1.88 mIU/L 0.50-6.00 Ua - Micro (Fma) 06/28/2011 Appearance cloudy Color yellow Glucose neg Bilirubin neg Ketones neg SP Grav <1.005 Blood small PH 5.0 Protein neg Urobil 0.2 Nitrite neg Leukocytes (Fma/CMC/Centrex) small Hyaline - /Lpf Granular - /Lpf WBC (Fma,Centrex) 20-30some clump RBC 1-2 Mucus - /Lpf Epith occass /Lpf Bacteria trace /Hpf Amorphous - /Lpf Crystals, Fluid (Fma/CMC/CTX) - Z#Comments - Wound Culture 06/28/2011 .Gram Stain Additional NO EPI, NO WBC, <SEE NOTE> 23 Wound Culture Citrobacter freu <SEE NOTE> 24 Ua - Micro (Fma) 05/24/2011 Appearance clear Color light yellow Glucose neg Bilirubin neg Ketones neg SP Grav <1.005 Blood neg PH 5.5 Protein neg Urobil 0.2 Nitrite neg Leukocytes (Fma/CMC/Centrex) trace Hyaline - /Lpf Granular - /Lpf WBC (Fma,Centrex) 1-2 RBC - Mucus - /Lpf Epith rare /Lpf Bacteria rare /Hpf Amorphous - /Lpf Crystals, Fluid (Fma/CMC/CTX) - Z#Comments - Wound Culture 05/24/2011 .Gram Stain Additional FEW EPI, RARE WB <SEE NOTE> 25 Wound Culture Escherichia coli 26 GC/Chlamydia Probe Or 05/24/2011 Chlamydia Amplified Probe NEGATIVE Urine(Centrex) GC Amplified Probe NEGATIVE Laboratory test finding 03/06/2011 Thin Prep W/HPV(Lsil/SAM/Asc) SEE NOTE 27 Ua - Non Micro (Fma) 03/06/2011 Appearance CLEAR Color YELLOW Glucose NEG Bilirubin NEG Ketones NEG SP Grav <=1.005 Blood NEG PH 5.0 Protein NEG Urobil 0.2 Nitrite NEG Leukocytes (Fma/CMC/Centrex) NEG Laboratory test finding 06/05/2009 Urine Culture BETA STREP GROUP 28 Sensitivi <SEE NOTE> Comp Stat 06/04/2009 Sodium 140 mmol/L 135-145 Potassium 3.5 mmol/L 3.5-5.0 Chloride 104 mmol/L 101-111 Co2 (Carbon Dioxide) 29.0 mmol/L 22-32 Anion Gap 7.0 mmol/L 2-11 29 Glucose 95 mg/dL 70-100 30 BUN 17 mg/dL 6-24 Creatinine 0.70 mg/dL 0.50-1.40 One Over Creatinine 1.40 BUN/Creatinine Ratio 24.3 High 8-20 Calcium 9.5 mg/dL 8.1-9.9 31 Total Protein 7.4 GM/DL 6.2-8.1 Albumin 4.1 GM/DL 3.2-5.2 Globulin 3.3 GM/DL 2-4 Albumin/Globulin Ratio 1.2 1-3 Bilirubin Total 1.6 mg/dL High 0.4-1.5 32 Alkaline Phosphatase 72 U/L 30-110 Alt (SGPT) 12 U/L Low 14-54 Ast (Sgot) 24 U/L 12-42 eGFR Non- 89.3 > 60 eGFR 108.0 > 60 33 Protime Stat 06/04/2009 Inr 0.97 0.86-1.13 34 Protime 11.9 SEC 10.7-13.6 35 PTT (Aptt) Stat 06/04/2009 PTT (Aptt) 31.2 25.15-38.53 36 CBC With Electronic Diff Stat 06/04/2009 White Blood Count 6.7 CUMM 4.8- 10.8 Red Cell Count 4.92 CUMM 4.2-5.4 Hemoglobin 14.7 g/dL 12.0-16.0 Hematocrit 44 % 35-47 Mean Corpuscular Volume 89 um3 79-97 Mean Corpuscular Hemoglob 30 pg 27-31 Mean Corpuscular HGB Cone 34 g/dL 32-36 Redcell Distribution WDTH 14 % 10.5-15 Platelet Count 319 CUMM 150-450 Mean Platelet Volume 7.4 um3 7.4-10.4 Gran % 63.2 % 38-83 Lymph % 23.9 % Low 25-47 Mononuclear % 7.8 % 1-9 Eosinophil % 4.0 % 0-6 Basophil % 1.1 % 0-2 Abs Lymphs 1.6 1.0-4.8 Abs Mononuclear 0.5 0-0.8 Absolute Neutrophil Count 4.2 1.5-7.7 Abs Eosinophils 0.3 0-0.6 Abs Basophils 0.1 0-0.2 Complete Blood Count 05/19/2009 WBC 5.9 x10^3/uL 3.6-9.6 37 Gran# 4.0 x10^3/uL 1.5-7.2 37 Gran% 68.6 % 42.2-75.2 37 HCT 43 % 36-50 37 HGB 14.6 g/dL 12.1-17.2 37 Lymph# 1.5 x10^3/uL 0.7-4.9 37 Lymph% 25.9 % 20.5-51.1 37 MCH 29.2 pg 27.6-33.3 37 MCV 86.0 fL 82.2-97.4 37 MCHC 34.0 g/dL 33.0-35.5 37 Mo# 0.3 x10^3/uL 0.1-0.9 37 Mo% 5.5 % 1.7-9.3 37 MPV 7.9 fL 7.4-10.4 37 PLT 326 x10^3/uL 150-400 37 RBC 5.01 x10^6/uL 3.90-5.70 37 RDW 13.5 % 11.6-13.7 37 Laboratory test finding 05/19/2009 TSH 2.01 mIU/L 0.50-6.00 37 Comprehensive Metabolic Prof 05/19/2009 Albumin 4.5 g/dL 3.8-5.5 37 Alk. Phos. 65 U/L 30-110 37 Alt (SGPT) 11 U/L 7-35 37 Ast (Sgot) 23 U/L 5-34 37 BUN 22 mg/dL 6-26 37 Calcium 9.5 mg/dL 8.6-10.2 37 Chloride 100 mEq/L 94-112 37 Creatinine 0.8 mg/dL 0.6-1.4 37 Carbon Dioxide 28 mEq/L 21-32 37 Glucose 93 mg/dL 70-105 37 Sodium 143 mEq/L 134-149 37 Total Bilirubin 1.0 mg/dL 0.2-1.3 37 Total Protein 7.5 g/dL 6.3-8.1 37 Potassium 4.1 mEq/L 3.6-5.5 37 Globulin 3.0 g/dL 2.0-4.8 37 A/G Ratio 1.5 Calc 0.6-2.2 37 BUN/Creat Ratio 26.6 Calc 8.0-36.0 37 Lipid Profile 05/19/2009 Cholesterol 227 mg/dL High 120-200 37 HDL 41 mg/dL 30-85 37 Triglycerides 183 mg/dL 30-200 37 HDL Risk Factor 5.6 CALC 4.2-7.0 37 LDL (Calculated) 150 CALC High 0-129 37 VLDL (Calculated) 37 mg/dL 0-50 37 Laboratory test finding 05/06/2009 Thin Prep W/HPV(Lsil/SAM/Asc) SEE NOTE 38 Ua - Micro (a) 05/06/2009 Appearance CLEAR Color YELLOW Glucose NEG Bilirubin NEG Ketones NEG SP Grav 1.015 Blood NEG PH 5.0 Protein NEG Urobil 0.2 Nitrite NEG Leukocytes (Fma/CMC/Centrex) TRACE Hyaline - /Lpf Granular - /Lpf WBC (Fma,Centrex) 0-1 RBC 0-1 Mucus - /Lpf Epith RARE /Lpf Bacteria - /Hpf Amorphous - /Lpf Crystals, Fluid (Fma/CMC/CTX) - Z#Comments - Ua - Micro (a) 03/09/2009 Appearance chromagenic Color interference Glucose - Bilirubin - Ketones - SP Grav - Blood - PH - Protein - Urobil - Nitrite - Leukocytes (Fma/CMC/Centrex) - Hyaline - /Lpf Granular - /Lpf WBC (Fma,Centrex) 0-1 RBC 0-2 Mucus small amt /Lpf Epith few /Lpf Bacteria rare /Hpf Amorphous - /Lpf Crystals, Fluid (Fma/CMC/CTX) - Z#Comments - Laboratory test finding 03/09/2009 Urine Culture 10,000 cfu/l (a[place] Laboratory test finding 02/02/2009 B12 863 pg/mL 230-1050 Comprehensive Metabolic 02/02/2009 Albumin 4.3 g/dL 3.8-5.5 Prof Alk. Phos. 59 U/L 30-110 Alt (SGPT) 8 U/L 7-35 Ast (Sgot) 22 U/L 5-34 BUN 16 mg/dL 6-26 Calcium 10.1 mg/dL 8.6-10.2 Chloride 103 mEq/L 94-112 Creatinine 0.7 mg/dL 0.6-1.4 Carbon Dioxide 31 mEq/L 21-32 Glucose 97 mg/dL 70-105 Sodium 139 mEq/L 134-149 Total Bilirubin 0.7 mg/dL 0.2-1.3 Total Protein 7.0 g/dL 6.3-8.1 Potassium 3.8 mEq/L 3.6-5.5 Globulin 2.7 g/dL 2.0-4.8 A/G Ratio 1.6 Calc 0.6-2.2 BUN/Creat Ratio 21.6 Calc 8.0-36.0 Laboratory test finding 02/02/2009 TSH 2.29 mIU/L 0.50-6.00 CBC (a) 02/02/2009 WBC 6.7 3.6-9.6 RBC 4.48 3.90-5.70 Hemoglobin (Fma/CMC/CTX) 13.0 g/dL 12.1 - 17.2 Hematocrit (Fma/CMC/CTX) 39.6 % 36.1 - 50.3 Mean Corpuscular Vol 88.4 82.2-97.4 Mean Corpuscular Hemaglobin 29.0 27.6-33.3 Mean Corpuscular Hemo Concen 32.8 Low 33.0-36.0 Platelets 287 10^3/ul 150-400 Lymph% 27.1 20.5-51.1 Mixed% 8.1 Neutrophils % 64.8 RDW 14.2 High 11.6-13.7 Mean Platelet Volume 10.1 7.4-10.4 Laboratory test finding 02/02/2009 C-Reactive Protein <0.1 mg/dL 0.0-0.5 Ua - Non Micro (Fma) 07/02/2006 Appearance CLEAR Color YELLOW Glucose NEG Bilirubin NEG Ketones NEG SP Grav 1.020 Blood NEG PH 5.5 Protein NEG Urobil 0.2 Nitrite NEG Leukocytes (a/CMC/Centrex) NEG Laboratory test finding 07/02/2006 Thinprep Pap W/HPV SCR. Of SEE IMAGE SAM/ASCUS HPV, High Risk Only Negative for hig <SEE NOTE> 39 Laboratory test finding 05/18/2005 Thinprep W/HPV LGSIL SEE IMAGE (SAM/ASCUS) Ua - Non Micro (a New) 05/18/2005 Appearance CLEAR Color YELLOW Glucose NEG Bilirubin NEG Ketones NEG SP Grav 1.010 Blood NEG PH 5.0 Protein NEG Urobil 0.2 Nitrite NEG Leukocytes NEG Comp Metabolic ([facility] 06/07/2001 Sodium 141 mmol/L 135-145 Potassium 3.9 3.5-5.0 Chloride 103 mmol/L 95-108 Co2 25.4 21-33 Glucose 92 mg/dL 70-105 BUN 21 6-22 Creatinine 0.8 mg/dL 0.5-1.4 BUN/Creatinin Ratio 26.3 High 8-20 Calcium 9.2 mg/dL 8.7-10.2 Total Protein 7.3 GM/DL 6.2-8.1 Albumin 4.1 3.6-5.4 Globulin 3.2 2-4 Albumin / Globulin Ratio 1.3 1-3 Bilirubin, Total 1.0 mg/dL 0.1-1.0 Alkaline Phosphatase 57 U/L 30-110 Alt (SGPT) 9 1-40 Ast (Sgot) 19 1-34 Lipid Profile ([facility] 06/07/2001 Triglyceride 151 mg/dL 40-200 Cholesterol 223 mg/dL High 100-200 HDL-Chol 61 High 35-60 Cholesterol / HDL Ratio 3.66 AVG 1-4.97 LDL-Calculated 132 High 1-130 Laboratory test finding 06/07/2001 TSH 1.5 0.3-4.5 CBC Electronic ([facility] 06/07/2001 WBC 5.0 4.8-10.8 RBC 4.55 4.2-5.4 Hemoglobin 14.2 g/dL 12.0-16.0 Hematocrit 41 % 35-47 Mean Corpuscular Vol 91 79-97 Mean Corpuscular Hemaglobin 31 27-31 Mean Corpuscular Hemo Concen 34 32-36 RDW 12 10.5-15 Platelets 337 CUMM 150-450 Mean Platelet Volume 7.9 7.4-10.4 Granulocytes 74.7 % 38-83 Lymphocytes 18.3 % Low 20-45 Monocytes 2.8 % 1-9 Eosinophil 3.8 0-6 Basophil% 0.4 0-2 Abs Lymphs 0.9 Low 1.0-4.8 Abs Mononuclear 0.1 0-0.8 Abs Grans 3.8 1.5-7.7 Abs Eosinophils 0.2 0-0.6 Abs Basophils 0 0-0.2 Laboratory test finding 06/07/2001 Cortisol 20.20 Am8.7-22.4;PM<10 Comp Metabolic (Fma) 06/18/2000 Albumin 4.5 GM/DL 3.80 - 5.50 Alkaline Phosphatase 69 U/L 39-130 Bilirubin, Total 1.3 mg/dL 0.2-1.3 BUN 12 mg/dL 10-26 Calcium 8.7 mg/dL 7.4-9.2 Creatinine 0.7 mg/dL 0.6-1.4 Glucose 90 mg/dL 70 - 118 Ast Sgot 19 U/L 9-44 Alt (SGPT) 6(RECHECKED) U/L Low 10-40 Total Protein 7.5 g/dL 6.3-8.1 Sodium 141 134-149 Potassium 4.1 mEq/L 3.6-5.5 Chloride 98 mEq/L 94-112 Co2 29 21-32 Globulin 3.0 2.0-4.8 Albumin / Globulin Ratio 1.5 0.6-2.2 BUN/Creatinin Ratio 17.1 8.0-36 Lipid Profile (Fma) 06/18/2000 Cholesterol 182 mg/dL 140-200 Triglyceride 213 mg/dL High 30-150 HDL-Chol 44.4 mg/dL 30-70 VLDL 43 mg/dL 0-50 LDL-Calculated 95 0-160 Laboratory test finding 06/18/2000 TSH 1.72 uIU/ML 0.4-4.2 Fma-CBC With Manual Dif 06/18/2000 WBC 7.5 /Hpf 3.6 - 9.6 RBC 4.50 /Hpf 3.90 - 5.70 Hemoglobin 13.7 g/dL 12.1 - 17.2 Hematocrit 40.5 Mean Corpuscular Vol 90.0 fl 82.2 - 97.4 Mean Corpuscular Hemaglobin 30.4 pg 27.6 - 33.3 Mean Corpuscular Hemo Concen 33.8 g/dL 33.0 - 34.8 RDW 13.2 % 11.6 - 13.7 Platelets 329 10^3/ul 150-400 Mean Platelet Volume 8.1 fl 7.4 - 10.4 Neutrophils 70 Band 4 Lymphocytes 20 Monocytes 6 Eosinophils - Basophils - Metamyelocytes - Myelocytes - Promyelocyte - Blast - Atypical Lymph - NRBC - Morphology NORMAL Ua - Non Micro (a New) 05/26/2000 Appearance CLEAR YELLOW Glucose - Bilirubin - Ketones - SP Grav <=1.005 Blood - PH 5.5 Protein - Urobil 0.2 Nitrite - Leukocytes - Ua - Micro (a Old) 06/15/1999 Appearance YEL CLEAR SP Grav 1.023 Esterase - Nitrite - pH 5.0 Protein - Glucose - Ketones - Urobil - Bilirubin - Blood - Hyaline - /Lpf Granular - /Lpf WBC'S 8-10 RBC'S 0-1 Mucus - /Lpf Epith FEW Bacteria - Amorphous - /Lpf Crystals - /Lpf 1 RESULTS VERIFIED BY REPEAT ANALYSIS 2 RESULTS VERIFIED BY REPEAT ANALYSIS 3 Because ethnic data is not always readily available, this report includes an eGFR for both -Americans and non- Americans. The National Kidney Disease Education Program (NKDEP) does not endorse the use of the MDRD equation for patients that are not between the ages of 18 and 70, are , have extremes of body size, muscle mass, or nutritional status, or are non- or non-. According to the National Kidney Foundation, irrespective of diagnosis, the stage of the disease is based on the level of kidney function: Stage Description GFR(mL/min/1.73 m(2)) 1 Kidney damage with normal or decreased GFR 90 2 Kidney damage with mild decrease in GFR 60-89 3 Moderate decrease in GFR 30-59 4 Severe decrease in GFR 15-29 5 Kidney failure <15 (or dialysis) 4 Reference Range and Interpretation: TnI (ng/mL) Interpretation Less Than 0.03 ng/mL Not supportive of diagnosis of NE 0.03 - 0.50 ng/mL Indeterminate: suggest serial studies if clinically indicated. Greater than 0.5 ng/mL Consistent with diagnosis of NE 5 RESULTS VERIFIED BY REPEAT ANALYSIS 6 FASTING 7 Positive: 5 of the following Borrelia-specific bands: 18,23,28,30,39,41,45,58, 66, and 93. Negative: No bands or banding patterns which do not meet positive criteria. 8 Note: An equivocal or positive EIA result followed by a negative Western Blot result is considered NEGATIVE. An equivocal or positive EIA result followed by a positive Western Blot is considered POSITIVE by the CDC. Positive: 2 of the following bands: 23,39 or 41 Negative: No bands or banding patterns which do not meet positive criteria. Criteria for positivity are those recommended by CDC/ASTPHLD. p23=Osp C, u02=mnnckftae Note: Sera from individuals with the following may cross react in the Lyme Western Blot assays: other spirochetal diseases (periodontal disease, leptospirosis, relapsing fever, yaws, and pinta); connective autoimmune (Rheumatoid Arthritis and Systemic Lupus Erythematosus and also individuals with Antinuclear Antibody); other infections (Ephrata Spotted Fever; Bridget-Pradhan Virus, and Cytomegalovirus). 9 RUN DATE: 03/16/14 [facility] LAB LIVE PAGE 1 RUN TIME: [address] [place] [address] Specimen Inquiry Name: SHARONDA COOL : [address]: Emmett Hayes MD Acct: [id number] Unit: [id number] AGE: 68 Location: ED Re03/13/14 SEX: F Status: DEP ER SPEC: [id number] ASHLEY: 03/14/140 [facility] DR: Emmett Hayes MD REQ: [id number] RECD: 03/14/14 STATUS: GETACHEW JACKSON DR: Rosalia Jensen MD _ SOURCE: STOOL SPDESC: ORDERED: Stool Culture Procedure Result Verified Site Stool Culture Final 03/16/14- 1122 ML Result No enteric pathogens isolated Testing for Salmonella, Shigella, Aeromonas, Plesiomonas, Yersinia and Campylobacter are included in a Stool Culture. Vibrio spp not routinely tested for in a stool culture. If testing is desired, please request specifically when placing test order. Sensitivities not routinely performed on stool isolates, as antibiotics may prolong the carriage rate of bacteria. Please contact the microbiology lab if sensitivities are required. Stool Specimen Description Final 03/14/14- 0802 ML Stool Color Brown Stool Form Nonformed Stool Consistency Liquid Shiga Toxin 1 2 Final 03/16/14- 1247 ML Organism 1 Negative Shiga Toxin 1 2 Immunochromatographic Assay CONTINUED ON NEXT PAGE * ML=Testing performed at Main Lab DEPARTMENT OF PATHOLOGY, [facility] [employer] [place] [address] Presley Leyva M.D. Director [facility] # [id number] RUN DATE: 03/16/14 [facility] LAB LIVE PAGE 2 RUN TIME: [address] [facility] [address] [place], [place] [address] Specimen Inquiry Patient: SHARONDA COOL [id number] (Continued) Specimen: [id number] Collected: 03/14/14 Received: 03/14/14 (Continued) Procedure Result Verified Site Shiga Toxin 1 2 Final (continued) 03/16/14- 1247 END OF REPORT * ML=Testing performed at Main Lab DEPARTMENT OF PATHOLOGY, [facility] [employer] [place], [place] [address] Presley Leyva M.D. Director [facility] # [id number] RUN DATE: 03/14/14 [facility] LAB LIVE PAGE 1 RUN TIME: [address] [facility] [address] [place], [place] [address] Specimen Inquiry Name: SHARONDA COOL : [address]: Emmett Hayes MD Acct: [id number] Unit: [id number] AGE: 68 Location: ED Re03/13/14 SEX: F Status: DEP ER SPEC: [id number] ASHLEY: 03/14/14 [facility] DR: Emmett Hayes MD REQ: [id number] RECD: 03/14/14 STATUS: GETACHEW JACKSON DR: Rosalia Jensen MD _ SOURCE: STOOL SPDESC: ORDERED: Fecal Lactoferr Procedure Result Verified Site Stool Specimen Description Final 03/14/14- 0802 ML Stool Color Brown Stool Form Nonformed Stool Consistency Liquid Fecal Lactoferrin (Stool WBC) Final 03/14/14- 1218 ML Fecal Lactoferrin Positive by Immunoassay TEST LIMITATIONS: Assay detects elevated levels of lactoferrin released from fecal leukocytes as a marker of intestinal inflammation. The test may not be appropriate in immunocompromised persons. Fecal samples from breast fed infants should not be used with this assay. END OF REPORT * ML=Testing performed at Main Lab DEPARTMENT OF PATHOLOGY, [facility] [employer] [place], [place] [address] Presley Leyva M.D. Director [facility] # [id number] RUN DATE: 03/14/14 [facility] LAB LIVE PAGE 1 RUN TIME: [address] [facility] [address] [place], [place] [address] Specimen Inquiry Name: SHARONDA COOL : [address]: Emmett Hayes MD Acct: [id number] Unit: [id number] AGE: 68 Location: ED Re03/13/14 SEX: F Status: DEP ER SPEC: [id number] ASHLEY: 03/14/140 [facility] DR: Emmett Hayes MD REQ: [id number] RECD: 03/14/14 STATUS: RES OTHR DR: Rosalia Jensen MD _ SOURCE: STOOL SPDESC: ORDERED: C. diff Amp DNA, O P (Full), O P: Giar/Crypt COMMENTS: NO TRAVEL HISTORY IN LAST MONTH; PROBLEMS WITH DIARRHEA FOR YEARS PER STONE IN ED Procedure Result Verified Site C. difficile Amplified DNA Final 03/14/14- 1331 ML Organism 1 POS: C. DIFFICILE DETECTED Assay tests for toxigenic C. difficile with Pathogen Locus (PALOC) TEST LIMITATIONS: Assay does not distinguish between viable and nonviable organisms. Test results are to be used in conjunction with information available from the patient clinical evaluation and other diagnostic procedures. Two distinct groups have been identified that can harbor C. difficile asymptomatically at very high rates. Colonization at rates up to 50% and higher have been reported in infants and rates up to 32% in cystic fibrosis patients. Ova Parasite Concen Full PENDING O P: Giardia/Cryptospor Screen PENDING END OF REPORT * ML=Testing performed at Main Lab DEPARTMENT OF PATHOLOGY, [facility] [employer] [place], [place] [address] Presley Leyva M.D. Director [facility] # [id number] RUN DATE: 03/16/14 [facility] LAB LIVE PAGE 1 RUN TIME: [address] [facility] [address] [place], [place] [address] Specimen Inquiry Name: SHARONDA COOL : [address]: Emmett Hayes MD Acct: [id number] Unit: [id number] AGE: 68 Location: ED Re03/13/14 SEX: F Status: DEP ER SPEC: [id number] ASHLEY: 03/14/14-0350 [facility] DR: Emmett Hayes MD REQ: [id number] RECD: 03/14/14 STATUS: RES OTHR DR: Rosalia Jensen MD _ SOURCE: STOOL SPDESC: ORDERED: C. diff Amp DNA, O P (Full), O P: Giar/Crypt COMMENTS: NO TRAVEL HISTORY IN LAST MONTH; PROBLEMS WITH DIARRHEA FOR YEARS PER STONE IN ED POSITVE CDT: Verbal to [id number] (ED) by [id number] at 1723 on 03/14/14. Results read back accurately. Procedure Result Verified Site C. difficile Amplified DNA Final 03/14/14- 1331 ML Organism 1 POS: C. DIFFICILE DETECTED Assay tests for toxigenic C. difficile with Pathogen Locus (PALOC) TEST LIMITATIONS: Assay does not distinguish between viable and nonviable organisms. Test results are to be used in conjunction with information available from the patient clinical evaluation and other diagnostic procedures. Two distinct groups have been identified that can harbor C. difficile asymptomatically at very high rates. Colonization at rates up to 50% and higher have been reported in infants and rates up to 32% in cystic fibrosis patients. Ova Parasite Concen Full PENDING O P: Giardia/Cryptospor Screen Final 03/16/14- 1248 ML Organism 1 Neg Cryptosporidium/Giardia CONTINUED ON NEXT PAGE * ML=Testing performed at Main Lab DEPARTMENT OF PATHOLOGY, [address] [place] [address] Presley Leyva M.D. Director [facility] # [id number] RUN DATE: 03/16/14 [facility] LAB LIVE PAGE 2 RUN TIME: [address] [place] [address] Specimen Inquiry Patient: SHARONDA COOL [id number] (Continued) Specimen: [id number] Collected: 03/14/14 Received: 03/14/14 (Continued) Procedure Result Verified Site O P: Giardia/Cryptospor Screen Final (continued) 03/16/14- 1248 Giardia and cryptosporidium antigen testing performed by enzyme immunoassay. If patient is immunocompromised or has traveled to or is from a developing country, a full ova and parasite exam with microscopic (OPMIC) is recommended. All samples will be held one month in case full ova and parasite testing is requested. Contact the Microbiology Department at [phone]. TEST LIMITATIONS: As with all diagnostic procedures, the results obtained should be used in conjunction with other clinical information available the physician. Negative results can occur in samples containing antigen below lower limits of detection of the assay. The use of colonic washes, aspirates or other diluted sample types has not been established and could affect the performance of the assay. Stool samples contaminated with an oily or particulate base (eg. Barium, mineral oil etc.) could interfere with the test and are not recommended. END OF REPORT * ML=Testing performed at Main Lab DEPARTMENT OF PATHOLOGY, [address] [place] [address] Presley Leyva M.D. Director [facility] # [id number] 13 *Ascorbic acid is present which may interfere with detection of blood. 14 Because ethnic data is not always readily available, this report includes an eGFR for both -Americans and non- Americans. The National Kidney Disease Education Program (NKDEP) does not endorse the use of the MDRD equation for patients that are not between the ages of 18 and 70, are , have extremes of body size, muscle mass, or nutritional status, or are non- or non-. According to the National Kidney Foundation, irrespective of diagnosis, the stage of the disease is based on the level of kidney function: Stage Description GFR(mL/min/1.73 m(2)) 1 Kidney damage with normal or decreased GFR 90 2 Kidney damage with mild decrease in GFR 60-89 3 Moderate decrease in GFR 30-59 4 Severe decrease in GFR 15-29 5 Kidney failure <15 (or dialysis) 15 Reference Range and Interpretation: TnI (ng/mL) Interpretation Less Than 0.03 ng/mL Not supportive of diagnosis of NE 0.03 - 0.50 ng/mL Indeterminate: suggest serial studies if clinically indicated. Greater than 0.5 ng/mL Consistent with diagnosis of NE 16 Acute inflammation: >10.00 17 Critical Result LACT:2.6 Called to [id number] at: 23:10:47 by:[id number] Read back by:[id number] RUN DATE: 03/03/14 [facility] LAB LIVE PAGE 1 RUN TIME: [address] [place] [address] Specimen Inquiry Name: SHARONDA COOL : [address]: Rosalia Castellanos NP Acct: [id number] Unit: [id number] AGE: 68 Location: [facility] Re02/28/14 SEX: F Status: REG REF SPEC: [id number] ASHLEY: 02/28/14-1230 [facility] DR: Rosalia Castellanos NP REQ: [id number] RECD: 02/28/14-3239 STATUS: REESE JACKSON DR: Heather Jensen MD _ SOURCE: STOOL SPDESC: ORDERED: Stool Culture, O P (Full), O P: Giar/Crypt Procedure Result Verified Site Stool Culture Final 03/03/14- 0917 ML Result No enteric pathogens isolated Testing for Salmonella, Shigella, Aeromonas, Plesiomonas, Yersinia and Campylobacter are included in a Stool Culture. Vibrio spp not routinely tested for in a stool culture. If testing is desired, please request specifically when placing test order. Sensitivities not routinely performed on stool isolates, as antibiotics may prolong the carriage rate of bacteria. Please contact the microbiology lab if sensitivities are required. Stool Specimen Description Final 03/01/14- 0836 ML Stool Color Brown Stool Form Nonformed Stool Consistency Mucoid Shiga Toxin 1 2 Final 03/02/14- 1402 ML Organism 1 Negative Shiga Toxin 1 2 Immunochromatographic Assay CONTINUED ON NEXT PAGE * ML=Testing performed at Main Lab DEPARTMENT OF PATHOLOGY, [facility] [employer] [place], [place] [address] Presley Leyva M.D. Director [facility] # [id number] RUN DATE: 03/03/14 [facility] LAB LIVE PAGE 2 RUN TIME: [address] [facility] [address] [place], [place] [address] Specimen Inquiry Patient: SHARONDA COOL [id number] (Continued) Specimen: [id number] Collected: 02/28/14-123 Received: 02/28/14 (Continued) Procedure Result Verified Site Shiga Toxin 1 2 Final (continued) 03/02/14- 1402 Ova Parasite Concen Full PENDING O P: Giardia/Cryptospor Screen Final 03/02/14- 1430 ML Organism 1 Neg Cryptosporidium/Giardia Giardia and cryptosporidium antigen testing performed by enzyme immunoassay. If patient is immunocompromised or has traveled to or is from a developing country, a full ova and parasite exam with microscopic (OPMIC) is recommended. All samples will be held one month in case full ova and parasite testing is requested. Contact the Microbiology Department at [phone]. TEST LIMITATIONS: As with all diagnostic procedures, the results obtained should be used in conjunction with other clinical information available the physician. Negative results can occur in samples containing antigen below lower limits of detection of the assay. The use of colonic washes, aspirates or other diluted sample types has not been established and could affect the performance of the assay. Stool samples contaminated with an oily or particulate base (eg. Barium, mineral oil etc.) could interfere with the test and are not recommended. END OF REPORT * ML=Testing performed at Main Lab DEPARTMENT OF PATHOLOGY, [facility] [employer] [place], [place] [address] Presley Leyva M.D. Director [facility] # [id number] RUN DATE: 03/02/14 [facility] LAB LIVE PAGE 1 RUN TIME: [address] [facility] [address] [place], [place] [address] Specimen Inquiry Name: SHARONDA COOL : [address]: Rosalia Castellanos NP Acct: [id number] Unit: [id number] AGE: 68 Location: [facility] Re02/28/14 SEX: F Status: REG REF SPEC: [id number] ASHLEY: 02/28/14-1230 [facility] DR: Rosalia Castellanos [employer] REQ: [id number] RECD: 02/28/14 STATUS: RES [facility] DR: Heather Jensen MD _ SOURCE: STOOL SPDESC: ORDERED: Stool Culture, O P (Full), O P: Giar/Crypt Procedure Result Verified Site Stool Culture PENDING Stool Specimen Description Final 03/01/14- 0836 ML Stool Color Brown Stool Form Nonformed Stool Consistency Mucoid Shiga Toxin 1 2 Final 03/02/14- 1402 ML Organism 1 Negative Shiga Toxin 1 2 Immunochromatographic Assay Ova Parasite Concen Full PENDING O P: Giardia/Cryptospor Screen Final 03/02/14- 1430 ML Organism 1 Neg Cryptosporidium/Giardia Giardia and cryptosporidium antigen testing performed by enzyme immunoassay. If patient is immunocompromised or has traveled to or is from a developing country, a full ova and parasite exam with microscopic (OPMIC) is recommended. All samples will be held one month in case full ova and parasite testing is requested. Contact the Microbiology Department at [phone]. TEST LIMITATIONS: As with all diagnostic procedures, the results obtained should be used in conjunction with other clinical CONTINUED ON NEXT PAGE * ML=Testing performed at Main Lab DEPARTMENT OF PATHOLOGY, [address] [place] [address] Presley Leyva M.D. Director [facility] # [id number] RUN DATE: 03/02/14 [facility] LAB LIVE PAGE 2 RUN TIME: [address] [place] [address] Specimen Inquiry Patient: SHARONDA COOL [id number] (Continued) Specimen: [id number] Collected: 02/28/14-1230 Received: 02/28/14-792 (Continued) Procedure Result Verified Site O P: Giardia/Cryptospor Screen Final (continued) 03/02/14- 1430 information available the physician. Negative results can occur in samples containing antigen below lower limits of detection of the assay. The use of colonic washes, aspirates or other diluted sample types has not been established and could affect the performance of the assay. Stool samples contaminated with an oily or particulate base (eg. Barium, mineral oil etc.) could interfere with the test and are not recommended. END OF REPORT * ML=Testing performed at Main Lab DEPARTMENT OF PATHOLOGY, [facility] [employer] [place], [place] [address] Presley Leyva M.D. Director [facility] # [id number] RUN DATE: 03/03/14 [facility] LAB LIVE PAGE 1 RUN TIME: [address] [facility] [address] [place], [place] [address] Specimen Inquiry Name: SHARONDA COOL : [address]: Rosalia Castellanos NP Acct: [id number] Unit: [id number] AGE: 68 Location: [facility] Re02/28/14 SEX: F Status: REG REF SPEC: [id number] ASHLEY: 02/28/14-1230 [facility] DR: Rosalia Castellanos NP REQ: [id number] RECD: 02/28/149 STATUS: GETACHEW JACKSON DR: Heather Jensen MD _ SOURCE: STOOL SPDESC: ORDERED: Stool Culture, O P (Full), O P: Giar/Crypt Procedure Result Verified Site Stool Culture Final 03/03/14- 0917 ML Result No enteric pathogens isolated Testing for Salmonella, Shigella, Aeromonas, Plesiomonas, Yersinia and Campylobacter are included in a Stool Culture. Vibrio spp not routinely tested for in a stool culture. If testing is desired, please request specifically when placing test order. Sensitivities not routinely performed on stool isolates, as antibiotics may prolong the carriage rate of bacteria. Please contact the microbiology lab if sensitivities are required. Stool Specimen Description Final 03/01/14- 0836 ML Stool Color Brown Stool Form Nonformed Stool Consistency Mucoid Shiga Toxin 1 2 Final 03/02/14- 1402 ML Organism 1 Negative Shiga Toxin 1 2 Immunochromatographic Assay CONTINUED ON NEXT PAGE * ML=Testing performed at Main Lab DEPARTMENT OF PATHOLOGY, [address] [place] [address] Presley Leyva M.D. Director [facility] # [id number] RUN DATE: 03/03/14 [facility] LAB LIVE PAGE 2 RUN TIME: [address] [place] [address] Specimen Inquiry Patient: SHARONDA COOL [id number] (Continued) Specimen: [id number] Collected: 02/28/14-1230 Received: 02/28/14-1624 (Continued) Procedure Result Verified Site Shiga Toxin 1 2 Final (continued) 03/02/14- 1402 Ova Parasite Concen Full Final 03/03/14- 1343 ML Final Result No Ova Parasites seen by Ethyl Acetate Concentration No Cysts or Trophs Seen on Trichrome smear O P: Giardia/Cryptospor Screen Final 03/02/14- 1430 ML Organism 1 Neg Cryptosporidium/Giardia Giardia and cryptosporidium antigen testing performed by enzyme immunoassay. If patient is immunocompromised or has traveled to or is from a developing country, a full ova and parasite exam with microscopic (OPMIC) is recommended. All samples will be held one month in case full ova and parasite testing is requested. Contact the Microbiology Department at [phone]. TEST LIMITATIONS: As with all diagnostic procedures, the results obtained should be used in conjunction with other clinical information available the physician. Negative results can occur in samples containing antigen below lower limits of detection of the assay. The use of colonic washes, aspirates or other diluted sample types has not been established and could affect the performance of the assay. Stool samples contaminated with an oily or particulate base (eg. Barium, mineral oil etc.) could interfere with the test and are not recommended. END OF REPORT * ML=Testing performed at Main Lab DEPARTMENT OF PATHOLOGY, [facility] [employer] [place], [place] [address] Presley Leyva M.D. Director [facility] # [id number] 21 RUN DATE: 03/21/13 [facility] LAB LIVE PAGE 1 RUN TIME: [address] [facility] [address] [place], [place] [address] Specimen Inquiry Name: SHARONDA COOL : [address]: Heather Jensen MD Acct: [id number] Unit: [id number] AGE: 67 Location: [facility] Re03/20/13 SEX: F Status: REG REF SPEC: [id number] ASHLEY: 03/20/13-[address]: Heather Jensen MD REQ: [id number] RECD: 03/20/13 STATUS: SOUT _ ORDERED: IMAGE ANALYSIS FINAL DIAGNOSIS Negative for Intraepithelial lesion or Malignancy A. Ectocervical/Endocervical Specimen Adequacy: Satisfactory of evaluation Transformation zone component identified Patient Information: HPV: Thin Layer Pap Test w/reflex to high risk HPV DNA testing when ASCUS Actual Specimen Date: 03/20/13 Spec Date if unknown: 2010 Cautery: N IUD: N ?: N Post Menopausal?: Y Hysterectomy?: N Previous Abnormal Pap Smears?:N Signed (signature on file) JEFF Baumann (ASCP) 03/21 1413 This Pap test was evaluated with the assistance of the ThinPrep Test Imaging System. Due to cytologic findings at the social sciences instructor microscope, comprehensive manual rescreening by a Workflow Developer may be required. The Pap Smear is a screening test designed to aid in the detection of premalignant and malignant conditions of the uterine cervix. It is not a diagnostic procedure and should not be used as the sole means of detecting cervical cancer. Both false- positive and false- negative reports do occur. Depending on your risk status, a Pap smear shoudl be obtained and evaluated every 1-3 years. END OF REPORT * ML=Testing performed at Main Lab DEPARTMENT OF PATHOLOGY, [address] [place] [address] Presley Leyva M.D. Director [facility] Permit #[id number] RESULT VARSHA'D 23 NO EPI, NO WBC, NO ORGANISMS SEEN 24 Citrobacter freundii Moderate growth WOUND CULTURE organism 1 Citrobacter freundii Moderate growth Ertapenem <=0.5 Susceptible Meropenem <=0.25 Susceptible Amikacin <=2 Susceptible Amoxicillin/CA 8 Resistant Aztreonam <=1 Susceptible Cefazolin >=64 Resistant Cefepime <=1 Susceptible Ceftriaxone <=1 Susceptible Ciprofloxacin <=0.25 Susceptible Gentamicin <=1 Susceptible Imipenem <=1 Susceptible Levofloxacin <=0.12 Susceptible Tetracycline <=1 Susceptible Trimethoprim/Sulfa <=20 Susceptible 25 FEW EPI, RARE WBC, NO ORGANISMS SEEN 26 Escherichia coli Predominating WOUND CULTURE organism 1 Escherichia coli Predominating Meropenem <=0.25 Susceptible Ertapenem <=0.5 Susceptible Amikacin <=2 Susceptible Amoxicillin/CA <=2 Susceptible Ampicillin 4 Susceptible Aztreonam <=1 Susceptible Cefazolin <=4 Susceptible Ciprofloxacin <=0.25 Susceptible Gentamicin <=1 Susceptible Imipenem <=1 Susceptible Levofloxacin <=0.12 Susceptible Tetracycline >=16 Resistant Trimethoprim/Sulfa <=20 Susceptible 27 [facility] [employer] DEPARTMENT OF PATHOLOGY or Extension 8281 PENSION ADMINISTRATOR CYTOLOGY REPORT PATIENT: SHARONDA COOL : 1945 AGE: 65 Y SEX: F ACCT: [id number] PROCEDURE DATE: 03/06/2011 DATE RECEIVED: 03/07/2011 REQUESTING PHYSICIAN: KIMBERLY GALO MD [place] [facility] [place]. 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 THE PRESENCE OF TRANSFORMATION ZONE COMPONENT CANNOT BE DETERMINED DUE TO ATROPHIC CHANGES. GENERAL CATEGORIZATION NEGATIVE FOR INTRAEPITHELIAL LESIONS OR MALIGNANCY RECOMMENDATIONS Thin Prep Pap tests are examined with an FDA approved location-guidance system. ADDITIONAL COPIES SENT TO: Screened/Rescreened Electronically Signed Sign Out Date/Time: by: by: DAY DENG STORM, 03/07/2011 16:41 CT(ASCP) The Pap smear is a screening test designed to aid in the detection of premalignant and malignant conditions of the uterine cervix. It is not a diagnostic procedure and should not be used as the sole means of detecting cervical cancer. Both false-positive and false-negative reports do occur. Performed @ [facility], [employer] [address] [place] [id number] 28 [employer] 29 Anion gap measurement may be of limited value in the presence of any alkalosis, especially in a combined acid base disorder. . 30 Note change in reference range as of 04/30/08. The change was based on recommendations from the [place] [employer]. 31 Please note change in reference range effective 08 . 32 A metabolite of Naproxen, O-desmethylnaproxen, has been shown to interfere with the Jendrassik-Parcoal method for measuring total bilirubin. Samples from patients who have taken Naproxen have shown spurious elevation in total bilirubin levels. 33 Because ethnic data is not always readily available, this report includes an eGFR for both -Americans and non- Americans. The National Kidney Disease Education Program (NKDEP) does not endorse the use of the MDRD equation for patients that are not between the ages of 18 and 70, are , have extremes of body size, muscle mass, or nutritional status, or are non- or non-. According to the National Kidney Foundation, irrespective of diagnosis, the stage of the disease is based on the level of kidney function: Stage Description GFR(mL/min/1.73 m(2)) 1 Kidney damage with normal or decreased GFR 90 2 Kidney damage with mild decrease in GFR 60-89 3 Moderate decrease in GFR 30-59 4 Severe decrease in GFR 15-29 5 Kidney failure <15 (or dialysis) 34 Recommended INR for Patients on Oral Anticoagulants Prophylaxis 2.0 - 3.0 Treatment of thrombosis 2.0 - 3.0 Prevention of embolism 2.0 - 3.0 Prevention of embolism from prosthetic heart valves 2.5 - 3.5 35 ATTENTION EFFECTIVE 01/20/09, THE IMPLEMENTATION OF NEW COAGULATION ANLAYZERS HAS CAUSED A SIGNIFICANT DIFFERENCE FOR PROTIME RESULTS IN SECONDS. THEREFORE, DIAGNOSIS,TREATMENT,AND THERAPY MUST BE BASED ON THE INR VALUE ONLY. 36 PLEASE NOTE NEW REFERENCE RANGE EFFECTIVE 09. 37 FASTING 38 [employer] DEPARTMENT OF PATHOLOGY or Extension 4686 PENSION ADMINISTRATOR CYTOLOGY REPORT PATIENT: SHARONDA COOL : 1945 AGE: 63 Y SEX: F ACCT: [id number] PROCEDURE DATE: 05/06/2009 DATE RECEIVED: 05/07/2009 REQUESTING PHYSICIAN: KIMBERLY GALO MD LOCATION: [facility] [place]. [id number] PATIENT DATA: [id number] SPECIMEN SUBMITTED: * * (HPVII) THIN PREP W/HPV (LSIL/ASC/SAM) * * CERVICAL RELEVANT HISTORY: LMP: ??/1983 Menopause: Y : 2 Para: 2 Prev.normal: UNKNOWN SPECIMEN ADEQUACY SATISFACTORY FOR EVALUATION. THE PRESENCE OF TRANSFORMATION ZONE COMPONENT CANNOT BE DETERMINED DUE TO ATROPHIC CHANGES. GENERAL CATEGORIZATION NEGATIVE FOR INTRAEPITHELIAL LESIONS OR MALIGNANCY ADDITIONAL COPIES SENT TO: Screened/Rescreened by: Electronically Signed by: JEFF HERRERA(ASCP) Signed Date and Time: 05/10/2009 14:19 Thin Prep Pap tests are examined with an FDA-approved location-guidance system (23479). Performed @ [employer] [address] [place] [address] "" 39 Negative for high/intermediate risk HPV types 16/18/31/33/35/39/45/51/52/56/58/59/68 Procedures Date CPT Code Description Status 01/30/2017 Mammogram Completed 02/16/2014 Colonoscopy Completed 01/19/2014 65625 Finger Or Heel Stick Completed 03/31/2013 Mammogram Completed 03/14/2011 Mammogram Completed 06/21/2009 Colonoscopy Completed 05/19/2009 Mammogram Completed 01/30/2007 Mammogram Completed 05/24/2000 12845 Electrocardiogram Complete Completed Encounters Type Date Location Provider CPT E/M Dx Office Visit 02/01/2018 1:40p [facility] Office Heather Jensen M.D. 98385 Q24.8 F43.22 Office Visit 01/18/2018 10:40a [facility] Office Heather Jensen M.D. 60758 R06.02 G31.84 K44.0 E78.2 E55.9 Z23 Office Visit 04/12/2017 3:30p [facility] Office TIGRE Lutz 71938 Z81.8 Office Visit 03/22/2017 2:40p [facility] Office Heather Jensen M.D. 07609 E78.2 L63.8 Office Visit 01/18/2017 10:00a [facility] Office Heather Jensen M.D. 04223 K58.9 Z00.00 H81.13 Z12.31 Z12.31 K58.9 R53.83 H81.13 E55.9 E78.2 L63.8 Office Visit 05/09/2016 3:20p [facility] Office Heather Jensen M.D. 80801 R41.9 R42 Office Visit 01/24/2016 9:15a [facility] [place] [address] J02.9 R82.90 K58.9 Office Visit 01/11/2016 1:30p [facility] [place] [address] R53.83 F33.1 R05 Office Visit 04/15/2015 1:45p [facility] Office TIGRE Lutz 12992 599.72 V41.5 Office Visit 01/26/2015 11:30a [facility] Office Heather Jensen M.D. 45513 268.9 V41.5 Office Visit 03/26/2014 10:40a [facility] Office Heather Jensen M.D. 69828 V70.0 787.91 564.1 311 268.9 Office Visit 03/16/2014 7:10p Main Office Heather Jensen M.D. 00023 787.91 Office Visit 02/27/2014 10:45a Main Office Rosalia Castellanos, [facility] 60506 535.40 787.91 Office Visit 01/19/2014 4:00p [facility] Rosalia Castellanos, [facility] 50707 535.40 Office Visit 05/23/2013 1:40p [facility] Heather Jensen M.D. 92981 564.1 311 Office Visit 03/20/2013 10:50a [facility] Heather Jensen M.D. 73958 V70.0 311 564.1 599.72 V72.31 272.4 780.79 Office Visit 01/04/2012 11:00a [facility] Rosalia Castellanos [facility] [address]5007 300.09 311 Office Visit 06/28/2011 1:00p [facility] Rosalia Castellanos, [facility] 31562 599.0 623.5 787.91 Office Visit 05/24/2011 10:40a Main Office Kimberly Galo M.D. 40186 623.5 564.1 Office Visit 04/13/2011 11:15a Main Office Ina Adam Frank-C 43970 787.91 Office Visit 04/06/2011 11:15a Main Office Adam Cardenas-C 71900 311 Office Visit 03/23/2011 11:30a Main Office Adam Cardenas-C 40898 311 Office Visit 03/06/2011 9:00a Main Office Kimberly Galo M.D. 86154 V70.0 V72.31 782.9 300.09 Office Visit 03/23/2010 10:00a Main Office Adam Cardenas-C 40532 386.11 V65.8 Office Visit 06/14/2009 3:00p Main Office Kimberly Galo M.D. 66743 435.9 386.11 Office Visit 05/14/2009 10:45a [facility] Office Ina Frank Afnp-C 57894 386.11 723.1 Office Visit 05/06/2009 1:00p [facility] Kimberly Galo, 27053 V70.0 M.DJude V72.31 V17.3 791.7 723.1 386.10 V76.49 Office Visit 03/09/2009 1:00p [facility] Office Martina NarvaezSachin jauregui 55960 788.1 Office Visit 02/02/2009 3:30p Main Office German Tapia M.D. 93656 386.10 780.79 477.9 Office Visit 01/28/2007 2:10p Main Office Kimberly Galo M.D. 40926 300.00 793.80 Office Visit 07/02/2006 3:20p Main Office Kimberly Galo M.D. 54384 V72.31 785.1 V70.0 Office Visit 05/18/2005 2:30p Main Office Ina MonikaSachin juan 72793 272.4 627.2 300.00 V72.31 Office Visit 02/17/2004 10:10a [facility] Office Wesley Andrade M.D. 96155 789.00 Office Visit 06/18/2001 10:30a Main Office [place] [address] Office Visit 06/05/2001 2:20p [facility] Wesley Andrade M.D. 72675 Office Visit 04/17/2001 1:20p [facility] Wesley Andrade M.D. 20886 Office Visit 06/15/2000 2:30p Main Office Sachin Cardenas 37749 Office Visit 05/24/2000 3:20p Main Office Wesley Andrade M.D. 13410 Plan of Care 05/22/2018 - Heather Jensen M.D.I25.10 Athscl heart disease of [place] coronary artery w/o ang pctrsNew Medication:Aspirin Ec 81 mgNitrostat 0.4 mgComments:start a baby aspirin every day. you will keep nitro with you at all times. take it every 5 minutes for 3 times, if no better call the ambulance. refer to qugbbrkckqA56.80 Other cholelithiasis without obstructionComments: refer to surgeons at [facility].M25.511 Pain in right shoulderNew Medication:Tramadol HCL 50 mgComments:EKG -NSRsevere painprobably due to your gallstones, referred pain given subjective severityof pain and basically negative exam. refer to general surgery.trial of tramadol.AllComments:~B_~U_ Medication Management~b_~u_ Patient Understands medications she's taking? Yes No Are there Barriers to Adherence? Yes No Has the patient been asked about herbal supplements and therapies, and OTC meds? Yes No
--- NOTE | 2018-05-23 15:26 | RAD ---
Indication: Indication: Right arm radiculopathy. CT of the cervical spine was obtained in the axial plane. Sagittal and coronal reconstructed images were obtained. The skull base demonstrates no fracture. Mastoid air cells are well aerated. C1 ring is intact. Degenerative changes of the atlantoaxial joint is noted. There is no fracture noted. At C2-C3 and C3-C4 there is no fracture. At C4-C5 there is no fracture noted. Left facet arthropathy is noted. Degenerative disc disease at C5-C6 and C6-C7 is noted with spondylytic ridge flattening the thecal sac. At C7-T1 disc space is unremarkable. There is no evidence of fracture of the cervical spine. IMPRESSION: Multilevel degenerative disc disease without evidence of fracture.
[2018-05-23] MEDS ORDERED: Acetaminophen TAB* 325 MG PO PRN (15:50)
[2018-05-23 17:04] LABS: Hematocrit 37 % (35-47); Hemoglobin 12.6 g/dl (12.0-16.0); Mean Corpuscular HGB Conc 34 g/dl (31-36); Mean Corpuscular Hemoglobin 29 pg (27-31); Mean Corpuscular Volume 85 fL (80-97); Mean Platelet Volume 7.8 um3 (7.4-10.4); Platelet Count 315 10^3/ul (150-450); Red Blood Count 4.38 10^6/ul (4.00-5.40); Red Cell Distribution Width 15 % (10.5-15); White Blood Count 8.9 10^3/ul (3.5-10.8)
[2018-05-23 17:20] LABS: EGFR Non-African American 73.3 (>60)
[2018-05-23 17:41] LABS: ABS Basophils 0.1 10^3/ul (0-0.2); ABS Eosinophils 0 10^3/ul (0-0.6); ABS Lymphocytes 0.6 10^3/ul (1.0-4.8); ABS Monocytes 0.2 10^3/ul (0-0.8)
[2018-05-23 17:43] LABS: ABS Basophils 0.1 10^3/ul (0-0.2); ABS Neutrophils 7.9 10^3/ul (1.5-7.7); Monocytes % 0 % (0-7)
[2018-05-23 18:21] LABS: Urine Appearance Cloudy; Urine Blood Negative (Negative); Urine Color Yellow; Urine Ketones 1+ (Negative); Urine Protein Negative (Negative); Urine Specific Gravity 1.019 (1.010-1.030); Urine Urobilinogen Negative (Negative)
[2018-05-23] MEDS ORDERED: Morphine INJ* 2 MG/ML 1 ML SYRINGE (TWO MG - NEW SYRINGE VERSION) IV PRN (19:55)
[2018-05-23] MEDS: Heparin VIAL(*) 5000 UNITS/ML VIAL (FIVE THOUSAND) SUBCUT SCH (23:00)
--- NOTE | 2018-05-23 23:21 | HP ---
CC: Dr. Heather Jensen * HISTORY AND PHYSICAL: DATE OF ADMISSION: 05/23/18 PROVIDER: Belkis Champion NP ATTENDING PHYSICIAN: Dr. Feldman * (report dictated by Belkis Champion NP). PRIMARY CARE PROVIDER: Dr. Heather Jensen. CHIEF COMPLAINT: Sent from [facility] with chief complaint of right upper quad pain. HISTORY OF PRESENT ILLNESS: Ms. Thurston has a past medical history of anxiety, hyperlipidemia, hypertension and recent hospitalization at [facility] from to 05/16/18 where she was diagnosed with an NSTEMI, which appears to sound like possible takotsubo's. On 05/14/18, the patient went to [facility] and she was transferred to [facility] where she was diagnosed with an NSTEMI with an abnormal EKG with ST depression, T-wave inversion with a troponin that peaked at 0.355. She underwent a cardiac catheterization, which showed: 1. "Mild nonobstructive coronary artery disease in the mid right coronary artery and the ostium of the diagonal. 2. Apical ballooning with [id number] left ventricular systolic dysfunction. 3. Mildly elevated left ventricular end-diastolic pressure." The recommendation was for medical therapy only. Her ejection fraction was noted to be 35% to 40% on her echocardiogram. Today, on evaluation in the emergency department, the patient is accompanied by her daughter and son-in-law. The patient is a very poor historian. Per the daughter, her mother does not keep her in the loop about her medical visits and reports that she lives in [place] half the year. Earlier this year, the patient in [place] was in the hospital, underwent a cardiac catheterization, which showed no coronary disease; however, it is unclear what had happened during that hospitalization and why she got the cardiac cath. Per the patient on exam, she denies ever having a heart attack in the past. However, recently, the daughter has become concerned because her mother appears to have undiagnosed dementia and is very forgetful. Currently, for the past week, the patient has been living with the daughter and son- in-law and they report that she has significant anxiety and a complaint of left upper chest wall pain underneath her breast that radiates to her right arm and down her right arm to her wrist and which she screams in pain when this occurs. Supposedly, per the daughter, this pain happened 2 weeks prior to her going into the hospital at [facility] where she was diagnosed with a non-STEMI and possible takotsubo's. Today, the patient had 1 of these episodes and which is being reported she has been having these intermittently for the past several weeks to the point where the family became concerned and brought her to the emergency department. She initially reported right upper quad pain and underwent an ultrasound of the gallbladder at [facility] today, which showed impression: "Mild gallbladder wall thickening with a few small nonmobile echogenic foci the gallbladder wall with questionable comet-tail artifact that is concerning for cholesterolosis." The patient was seen by Dr. Lim from [facility] and which the patient actually had an appointment to see him today in the office, but she went to the emergency department instead when she had this acute pain. Dr. Lim's recommendation was to transfer to [facility] for further workup, which will include a HIDA scan. Again, the patient is a very poor historian. Currently, on exam, she denies any pain. It was reported that she had some nausea and vomiting this morning at [facility] with dry heaving, but has not had none since. She denies any fevers, chills. No diarrhea or constipation. Denies dysuria, hematuria, increased urinary frequency. Per the daughter and son-in-law, they report that she is very very anxious and appears to be confused at times, which they have noticed a steady decline in the last several years. Please note, when I spoke to Dr. Lim, he does have records that were forwarded to him due to that he was going to see the patient in the office today. He reports that the patient did see school janitor, Dr. Stein, in February in [place] for pain, dyspnea and had a negative workup, as well as she underwent a CTA and it showed a small hiatal hernia. PAST MEDICAL HISTORY: 1. Hypertension. 2. Hyperlipidemia. 3. Anxiety. 4. Recent hospitalization from 05/14/18 to 05/16/18 at [facility] in [place], [place], diagnosed with an NSTEMI, possible takotsubo's. HOME MEDICATIONS: 1. Atorvastatin 10 mg p.o. daily. 2. Tramadol 50 mg p.o. daily. 3. Metoprolol succinate XL 25 mg p.o. daily. 4. Lisinopril 2.5 mg p.o. daily. 5. Aspirin 81 mg p.o. daily. ALLERGIES: MS, POLLEN EXTRACT. FAMILY HISTORY: The patient nor daughter know family history. SOCIAL HISTORY: Distant history of tobacco abuse, smoking for approximately 20 years, quitting 40 years ago. She denies alcohol use. She is retired and lives in [place] half the year and [place] the other half. She currently lives with her partner; however, she is recently staying with her daughter and son-in- law. The patient lists her daughter, Phyllis Fay, as her healthcare proxy. She states that she is a full code. REVIEW OF SYSTEMS: A 14-point review of systems was performed. All the pertinent positives and negatives are mentioned in the history of present illness. Otherwise are negative. Please note the patient is a poor historian. PHYSICAL EXAMINATION GENERAL APPEARANCE: A 72-year-old female, sitting up on the emergency department stretcher, alert and oriented x3, mildly confused, in no acute distress, answering some questions appropriately and is noted to be very forgetful and not able to remember details of her history. VITAL SIGNS: Temperature 97.8, heart rate 70, respirations 18, pulse oximetry 95% on 2 L nasal cannula, blood pressure 125/73. HEENT: Head is normocephalic, atraumatic. Pupils are equal and reactive to light. Oropharynx is clear. Moist mucous membranes. NECK: Supple. LUNGS: Clear to auscultation bilaterally. Good aeration throughout. CARDIAC: S1, S2. Regular rate and rhythm. No murmur, rub, or gallop appreciated. No JVD noted. No lower extremity edema noted. ABDOMEN: Soft, nontender, nondistended. Normal bowel sounds throughout. No Swanson sign. EXTREMITIES: No clubbing, cyanosis, or edema. Moves all extremities equally. Strength is 5/5 throughout. NEURO: Alert and oriented x3. Cranial nerves II through XII are grossly intact. No focal deficits noted. DIAGNOSTIC STUDIES/LAB DATA: Labs are pending at the time of dictation. Labs were reviewed from [facility], which appeared she had a mild leukocytosis. ASSESSMENT AND PLAN: Ms. Thurston is a 72-year-old female with a past medical history of recent hospitalization at [facility] for non-ST elevation myocardial infarction, possible takotsubo's, 2- to 3-week history of right upper quad pain radiating into her right shoulder, scapula, down her arm, who presented to the [facility] with an episode of this pain, who underwent a gallbladder ultrasound, which showed some possible gallbladder wall thickening, who was sent to [facility] for further evaluation. 1. Right upper chest wall pain. Unclear etiology behind the patient's pain and which appears that she has been experiencing this for the past 2 to 3 weeks even prior to her [facility] hospitalization. This is reported to be on a fairly regular basis almost every day multiple times a day. Per the family, she sometimes screams when she has this pain. This is accompanied with a lot of anxiety per the family. It is possible this is a gallbladder pathology; therefore, we will perform a HIDA scan to take a closer look at the gallbladder. She had a cervical neck CT, which was unremarkable. I was not able to elicit the pain on examination. Currently, her nausea and vomiting have subsided. Plan for n.p.o. after midnight with HIDA scan in the morning. Dr. Lim will see the patient tomorrow. I am waiting for labs to be drawn in the emergency department. 2. Recent non-ST elevation myocardial infarction with possible takotsubo's. Awaiting troponin in the emergency department. We will monitor on telemetry. Continue aspirin, lisinopril, metoprolol. EKG has been reviewed. Compared to her EKG that we have from [facility], there appears to be no acute changes. We will obtain echocardiogram as she was found to have significant abnormal wall motion on her cardiac catheterization and this puts her at high risk for a clot. 3. Hypertension, controlled. Continue metoprolol, lisinopril. 4. Anxiety. This appears to be secondary to possible undiagnosed dementia. Per the daughter, she has an initial appointment with a neurologist next month for evaluation. 5. DVT prophylaxis: Heparin subcu. 6. Hospital status: Observation. TIME SPENT: Approximately 60 minutes were spent on this admission. This case was discussed with Dr. Feldman, who agrees with the plan of care. BELKIS CHAMPION, INDUSTRIAL HYGIENE MANAGER [id number]/[facility] #: [id number] [facility]IAL HOSPITALStanislaw
[2018-05-24 05:57] LABS: ABS Basophils 0.1 10^3/ul (0-0.2); ABS Eosinophils 0.2 10^3/ul (0-0.6); ABS Lymphocytes 1.7 10^3/ul (1.0-4.8); ABS Monocytes 0.6 10^3/ul (0-0.8); ABS Neutrophils 4.3 10^3/ul (1.5-7.7); ABS Nucleated RBC 0 10^3/ul; Eosinophil % 2.6 % (0-6); Hematocrit 35 % (35-47); Lymphocyte % 25.2 % (25-47); Mean Corpuscular HGB Conc 34 g/dl (31-36); Mean Corpuscular Hemoglobin 29 pg (27-31); Mean Corpuscular Volume 85 fL (80-97); Mean Platelet Volume 7.7 um3 (7.4-10.4); Nucleated Red Blood Cells % 0.1; Platelet Count 323 10^3/ul (150-450); Red Blood Count 4.18 10^6/ul (4.00-5.40); Red Cell Distribution Width 16 % (10.5-15); White Blood Count 6.8 10^3/ul (3.5-10.8)
[2018-05-24] MEDS: Heparin VIAL(*) 5000 UNITS/ML VIAL (FIVE THOUSAND) SUBCUT SCH ×2 (06:00→15:32)
[2018-05-24 06:14] LABS: EGFR Non-African American 80.5 (>60)
[2018-05-24] MEDS ORDERED: Lisinopril TAB* 5 MG PO SCH (09:00)
[2018-05-24] MEDS ORDERED: traMADol TAB* 50 MG PO SCH (09:00)
[2018-05-24] MEDS ORDERED: Atorvastatin* 10 MG TAB PO SCH (09:00)
[2018-05-24] MEDS ORDERED: Aspirin EC TAB* 81 MG TAB.EC PO SCH (09:00)
[2018-05-24] MEDS ORDERED: Metoprolol Succinate XL TAB* 25 MG PO SCH (09:00)
--- NOTE | 2018-05-24 13:36 | ECHO ---
Patient: SHARONDA COOL [facility] Rec#: [id number] : 1945 Date: 05/24/2018 Age: 72y Height: 154.9 cm / 61.0 in Weight: 56.3 kg / 124.1 lbs Sex: F BSA: 1.5 Room#: 440 Admit Date#: 05/23/2018 Type: Inpatient Referring: Mary Brito Reading: Gina Felton MD Radiology Special Procedure Tech: Samara Hassan RN RDCS CC: THANH PORTILLO Transthoracic Echocardiogram Indication: Recent NSTEMI, cardiomyopathy BP: 117/71 HR: 74 Rhythm: NSR Findings History: HTN, HLD, anxiety, admission to [facility] 05/14/2018 with suspected Takotsubo cardiomyopathy. Technical Comments: The study quality is fair. Left Ventricle: The left ventricular chamber size is normal. Mild concentric left ventricular hypertrophy is observed. Mild global hypokinesis of the left ventricle is observed. There is mildly decreased left ventricular systolic function. The estimated ejection fraction is 45-50%. There is an E to A reversal in the mitral valve flow pattern suggestive of diastolic dysfunction. Left Atrium: The left atrial chamber size is normal. Right Ventricle: The right ventricular cavity size is normal. The right ventricular global systolic function is low normal. Right Atrium: The right atrium is slightly dilated. Aortic Valve: The aortic valve is trileaflet. The aortic valve leaflets are mildly thickened. There is mild aortic regurgitation. There is no evidence of aortic stenosis. Mitral Valve: The mitral valve leaflets are mildly thickened. There is a trace of mitral regurgitation. There is no evidence of mitral stenosis. Tricuspid Valve: The tricuspid valve leaflets are normal. There is trace tricuspid regurgitation. Unable to estimate the right ventricular systolic pressure. There is no tricuspid stenosis. Pulmonic Valve: The pulmonic valve appears normal. There is a trace pulmonic regurgitation. There is no pulmonic stenosis. Pericardium: There is no significant pericardial effusion. Aorta: There is mild dilatation of the ascending aorta. to 3.8 cm. There is no dilatation of the aortic arch. There is moderate dilatation of the aortic root. to 4.0 cm. Pulmonary Artery: The main pulmonary artery appears normal. Venous: The inferior vena cava appears normal in size. There is a greater than 50% respiratory change in the inferior vena cava dimension. Summary: There are changes noted when compared to the previous study done on 05/14/2018, now there is interval LV EF improvement from 35-40% then. Now there is no significant pericardial effusion instead of mild then. Conclusions The left ventricular chamber size is normal. Mild concentric left ventricular hypertrophy is observed. Mild global hypokinesis of the left ventricle is observed. There is mildly decreased left ventricular systolic function. The estimated ejection fraction is 45-50%. There is an E to A reversal in the mitral valve flow pattern suggestive of diastolic dysfunction. There is mild aortic regurgitation. There is a trace of mitral regurgitation. There is trace tricuspid regurgitation. There is a trace pulmonic regurgitation. There is mild dilatation of the ascending aorta. to 3.8 cm. There is moderate dilatation of the aortic root. to 4.0 cm. There are changes noted when compared to the previous study done on 05/14/2018, now there is interval LV EF improvement from 35-40% then. Now there is no significant pericardial effusion instead of mild then. Measurements Name Value Normal Range RVIDd (AP) 2D 2.6 cm (0.9 - 2.6) RVDdMajor (2D) 3.3 cm (2.2 - 4.4) RAd ISD 4CH 5.1 cm (3.4 - 4.9) RA (A4C)W 3.3 cm (2.9 - 4.6) IVSd (2D) 1.2 cm (0.6 - 1) LVPWd (2D) 1.1 cm (0.6 - 1) LVIDd (2D) 4 cm (3.6 - 5.4) LVIDs (2D) 2.5 cm - LV FS (2D) 37 % (25 - 45) Aortic Annulus 2.2 cm (1.4 - 2.6) Ao root diameter (2D) 4 cm (2.1 - 3.5) Ascending Ao 3.8 cm (2.1 - 3.4) Aortic arch 2.6 cm (1.8 - 3.4) LA dimension (AP) 2D 2.9 cm (2.3 - 3.8) LAd ISD 4CH 4.7 cm (2.9 - 5.3) LA ISD 4CH W 3.9 cm (2.5 - 4.5) Name Value Normal Range LA ESV SP 4CH (A/L) 49 ml - LA ESV SP 2CH (A/L) 43 ml - LA ESV BP (A/L) 46 ml - LA ESV BP (A/L) index 30.2 ml/m2 - LA ESV SP 4CH (MOD) 45 ml - LA ESV SP 2CH (MOD) 40 ml - Name Value Normal Range MV E-wave Vmax 0.57 m/sec - MV deceleration time 214 msec - MV A-wave Vmax 0.87 m/sec - MV E:A ratio 0.7 ratio - LV septal e' Vmax 0.04 m/sec - LV lateral e' Vmax 0.04 m/sec - LV E:e' septal ratio 14.3 ratio - LV E:e' lateral ratio 14.3 ratio - Name Value Normal Range AV Vmax 1.1 m/sec - AV VTI 23.7 cm - AV peak gradient 4.5 mmHg - AV mean gradient 3 mmHg - LVOT Vmax 1 m/sec - LVOT VTI 18 cm - LVOT peak gradient 4 mmHg - LVOT mean gradient 2 mmHg - DORA Vmax 0.46 m/sec - Name Value Normal Range IVC diameter 1.6 cm - Name Value Normal Range PV Vmax 0.6 m/sec -
[2018-05-24] MEDS ORDERED: Gabapentin CAP(*) 100 MG PO SCH (14:00)
[2018-05-24 16:12] VITALS: BP 114/69
[2018-05-24] MEDS ORDERED: Ondansetron ODT TAB* 4 MG SL PRN (17:52)
[2018-05-24] MEDS ORDERED: ALPRAZolam TAB* 0.25 MG PO PRN (17:56)
--- NOTE | 2018-05-24 18:00 | PN ---
"Progress Note - Progress Note Date of Service: 05/24/18 Note: Search Terms: lore don, 1945 Search Date: 05/24/2018 05:59:48 PM The Drug Utilization Report below displays all of the controlled substance prescriptions, if any, that your patient has filled in the last twelve months. The information displayed on this report is compiled from pharmacy submissions to the Department, and accurately reflects the information as submitted by the pharmacies. This report was requested by: Eric Boss | Reference #: [id number] Others' Prescriptions Patient Name: Lore Don Date: 1945 Address: [address] [place] [address] Sex: Female Rx Written Rx Dispensed Drug Quantity Days Supply Prescriber Name 05/22/2018 05/22/2018 tramadol hcl 50 mg tablet 20 5 Heather Jensen MD"
--- NOTE | 2018-05-25 10:06 | DS ---
CC: Heather Jensen MD DISCHARGE SUMMARY: DATE OF ADMISSION: DATE OF DISCHARGE: 05/24/18 HOSPITAL COURSE: This 72-year-old woman was transferred from [facility] with right uppe r quadrant pain. When I saw her, her main complaint was right arm pain, which she said she has had f or 2 weeks. She feels like the pain is inside. There is no tenderness. The pain goes from just bel ow her shoulder to just above her wrist. She is right-handed. She is able to use her arm okay. In regards to abdominal complaint, she had none. She was hungry. She had no tenderness on exam. She d enied having pain. There may be some problem with her memory, but overall she seemed to be quite com petent to take care of herself and was familiar with her situation. There were no obvious physical findings on her right arm. Strength was good. I think she may have s ome neuropathy there. I am going to start her on gabapentin 100 t.i.d. This can be titrated upward if there is no effect and no intolerable side effects. The patient did have a transthoracic echocardiogram and a CT scan of the cervical spine while here. Her ejection fraction on echo was 45% to 50%. There was mild global hypokinesis. This is an improve ment in her ejection fraction compared to 05/14/18. CT scan of the cervical spine showed multilevel degenerative disk disease with no evidence of fractur e. FINAL DIAGNOSES: 1. Right arm pain, possibly neuropathy. 2. Recent myocardial infarction with partial recovery of ejection fraction. 3. Hypertension. 4. Anxiety. DISCHARGE MEDICATIONS: 1. Gabapentin 100 mg t.i.d. 2. Atorvastatin 10 mg daily. 3. Tramadol 50 mg daily. 4. Metoprolol succinate 25 mg daily. 5. Lisinopril 2.5 mg daily. 6. Aspirin 81 mg daily. DISCHARGE CONDITION: Good. DISCHARGE DISPOSITION: Home. [id number]/[facility] #: [id number]
== END 2018-05-24 17:00 | disposition home or self-care (01) ==
LOC: ED 14:23 → INTOOBSV 14:50 → MEDTELE 14:50
PROVIDERS: ADMIT Internal Medicine; ATTEND Internal Medicine
DX: M79.601 Pain in right arm (principal); R07.9 Chest pain, unspecified; I25.2 Old myocardial infarction; I10 Essential (primary) hypertension; F41.9 Anxiety disorder, unspecified; Z79.82 Long term (current) use of aspirin; Z79.899 Other long term (current) drug therapy; Z87.891 Personal history of nicotine dependence; R94.31 Abnormal electrocardiogram [ECG] [EKG]; I51.7 Cardiomegaly
CPT/HCPCS: 36415; 72125; 80048; 80053; 81003; 83605; 84484; 85025; 85060; 86140; 93005; 93306; 96372; 99284; A9270-GY; G0378; J1644